=== PATIENT | female | born 1975 | race Hispanic/Latino ===

== ENCOUNTER 2021-04-13 03:35 | Emergency (ER) | payer OTHER, SELFPAY ==
--- OUTSIDE RECORDS SUMMARY | 2021-04-13 03:38 | XMS REPORT | Continuity of Care Document ---
:1975 Author Organization [facility] Address [address] [place] [address] Care Team Providers Name Role Phone DR SAMEER KNOTT Attending Clinician Unavailable , DR SHIN Attending Clinician Unavailable NIKOS, DR MARIA LUISA High Attending Clinician Unavailable TRISTON, Attending Clinician Unavailable REUBEN, DR Diego Attending Clinician Unavailable ASHLEY, Attending Clinician Unavailable TONIO, DR GODFREY Attending Clinician Unavailable NIKOS, Admitting Clinician Unavailable , Admitting Clinician Unavailable NIKOS, DR High Admitting Clinician Unavailable TRISTON, Admitting Clinician Unavailable REUBEN, DR Diego Admitting Clinician Unavailable ASHLEY, Admitting Clinician Unavailable TONIO, DR GODFREY Admitting Clinician Unavailable Problems This patient has no known problems. Allergies, Adverse Reactions, Alerts This patient has no known allergies or adverse reactions. Medications This patient has no known medications. Procedures This patient has no known procedures. Encounters Start End Encounter Admission Attending Care Care Encounter Source Date/Time Date/Time Type Type Clinicians Facility Department ID 2020-08-07 2020-08-07 Outpatient E NIKOS [facility] [id number] [facility] 13:28:00 13:55:00 [facility] 2020-06-13 2020-06-13 Outpatient E SHEIKH [facility] [id number] [facility] 11:59:00 13:45:00 KIP [facility] 2018-09-25 2018-09-25 Outpatient E MARIA LUISA KNOTT [facility] [id number] [facility] 03:21:00 04:05:00 [facility] 2018-08-06 2018-08-06 Outpatient E ROLANDO GOLDSTEIN [facility] [id number] [facility] 17:55:00 18:45:00 [facility] 2018-06-30 2018-06-30 Outpatient E SHEIKH [facility] [id number] [facility] 17:13:00 18:58:00 [facility] 2018-05-22 2018-05-22 Outpatient E REUBEN, [facility] [id number] [facility] 10:38:00 13:27:00 KYA [facility] 2018-04-08 2018-04-08 Outpatient E SHY RAMIREZ [facility] [id number] [facility] 11:24:00 12:04:00 [facility] 2018-02-27 2018-02-28 Outpatient E TONIO, [facility] [id number] [facility] 21:37:00 00:11:00 PEARL [facility] Results Test Description Test Time Test Comments Results Result [facility] Comments CT ABDOMEN AND 2021-01-05 PELVIS W/O 17:55:05 CONTRAST *OW* [facility] CENTERName: RAIZA CHAKRABORTY : 1975 Sex: F Ex am: CT abdomen and pelvis without contrast.Location: H 12History: Left sided abdominal painTechnique: Unenhanced spiral slices were taken from the domes of the diaphragm, through the pubic symphysis. Coronal reformations were performed. One or more of the following dose reduction techniques were used: Automated exposure control, adjustment of the mA and/or kV according to patient size, and/or utilization of iterative reconstruction technique.Findings:Th e liver is of normal, homogeneous density. No mass is seen. The intra-and extrahepatic biliary tree is normal. The gallbladder is unremarkable. No perinephric fluid collections or hydronephrosis is seen. The pancreas is normal. The pancreatic duct is normal in caliber. The spleen and adrenal glands are normal in size and shape.The left kidney is atrophic. Right kidney shows compensatory hypertrophy. The kidneys are otherwise unremarkable. No nephrolithiasis, perinephric fluid collections or hydronephrosis is seen.The large and small intestine are normal in caliber with scattered diverticula in the colon. The appendix is is not visualized. No inflammatory change is identified.No lymphadenopathy is found in the abdomen or the pelvis. No free fluid is seen.The pelvic structures are unremarkable.The lung bases are clear.No incidental findings are noted.Impression:1. No acute abdominal findings.2. Diverticulosis coli.3. Otherwise unremarkable exam.Electronically signed by: Bebeto Johnson MD 01/05/2021 5:55 PM CDT TROPONIN I OW 2021-01-05 17:38:00 Test Item Value Reference Range Interpretation Comme nts TROPONIN I (test code = A84) <0.050 ng/mL 0.000-0.050 GENERAL CHEMISTRY 13 *OW* [id number] 17:35:00 Test Item Value Reference Range Interpretation Comments GLUCOSE (test code = GGUL) 254 mg/dL 73-118 H BUN (test code = GBUN) 9 mg/dL 7-22 CREATININE (test code = GCRE) 0.4 mg/dL 0.6-1.2 L URIC ACID (test code = GUA) 1.9 mg/dL 2.2-6.6 L CALCIUM (test code = GCL+) 9.2 mg/dL 8.0-10.3 ALBUMIN (test code = GALB) 3.5 g/dL 3.5-5.5 PROTEIN (test code = GTP) 8.0 g/dL 6.4-8.1 ALT (test code = GALT) 6 U/L 10-47 L AST (test code = JEY) 19 U/L 11-38 ALK PHOS (test code = GALP) 75 U/L 42-141 BILI TOTAL (test code = GTBIL) 0.4 mg/dL 0.2-1.6 GGT (test code = GGGT) 22 U/L 5-65 AMYLASE (test code = GAMY) 31 U/L 14-97 URINE OW2021-01-05 17:35:00 Test Item Value Reference Range Interpretation Comments PREG UR (test code = PGU) Negative NEGATIVE URINALYSIS W/O MICROSCOPICOW2021-01-05 17:20:00 Test Item Value Reference Range Interpretation Comments COLOR (test code = Yellow YELLOW COLU) CLARITY (test code = Clear CLEAR CLA) GLUCOSE UR (test 3+ NEGATIVE A code = UA GLUCOSE) BILI UR (test code = Negative NEGATIVE BILE) KETONES UR (test Trace NEGATIVE code = LUPILLO) SP GRAVITY (test 1.020 1.005-1.030 code = SPGR) PH UR (test code = 7.0 4.5-8.0 PH) PROTEIN UR (test Negative NEGATIVE code = PU) NITRITE UR (test Negative NEGATIVE code = NITRITE) UROBIL UR (test code 4.0 E.U./dL = GUROQ) UROBIL UR (test code UROBILINOGEN = GUROQC) REFERENCE RANGE 0.2 - 1.0 EU/dL BLOOD UR (test code Negative NEGATIVE = UA BLOOD) LEUK ES UR (test Negative NEGATIVE code = LEUK) [employer] 8 Panel *OW* [id number] 17:20:00 Test Item Value Reference Range Interpretation Comments GLUCOSE (test code = GGUL) 254 mg/dL 73-118 H BUN (test code = GBUN) 9 mg/dL 7-22 CREATININE (test code = GCRE) 0.4 mg/dL 0.6-1.2 L CK TOTAL (test code = GCK) 43 U/L 30-190 SODIUM (test code = GNA+) 137 mmol/L 128-145 POTASSIUM (test code = GK+) 4.0 mmol/L 3.6-5.1 CHLORIDE (test code = GCL-) 106 mmol/L 98-108 TCO2 (test code = GTC02) 28 mmol/L 18-33 CBC (INCLUDES AUTOMATED DIFFERENTIAL) *2021-01-05 17:17:00 Test Item Value Reference Range Interpretation Comments WBC (test code = WBC) 7.2 10\S\3/uL 4.5-11.0 RBC (test code = RBC) 4.90 10\S\6/uL 4.20-5.60 HGB (test code = HBG) 10.3 g/dL 12.0-15.5 L HCT (test code = HCT) 33.7 % 35.0-44.0 L MCV (test code = MCV) 68.8 fL 81.0-99.0 L MCH (test code = MCH) 21.0 pg 27.0-31.0 L MCHC (test code = MCHC) 30.6 g/dL 32.0-36.0 L RDW (test code = RDW) 15.4 % 11.5-14.5 H PLT (test code = PLT) 223 10\S\3/uL 130-400 MPV (test code = OMPV) 9.2 fL 6.2-10.2 NEUTROP # (test code = NE#) 5.4 10\S\3/uL 1.6-8.0 LYMPH # (test code = LY#) 1.2 10\S\3/uL 1.1-3.5 MID # (test code = GMID#) 0.6 10\S\3/uL 0.0-1.1 GRAN % (test code = GRA%) 75.0 % 35.0-73.0 H LYMPH % (test code = GLY%) 16.9 % 20.0-55.0 L MID % (test code = GMID%) 8.1 % 0.0-10.0 DRUGS OF ABUSE*OW*2020-06-13 12:52:00 Test Item Value Reference Range Interpretation Comments DRUG SCRN (test code URINE DRUG SCREEN = HDOA) This is an unconfirmed screening result and should not be used for non-medical purposes PHENCYCLID (test Negative NEGATIVE code = GPCP) BENZODIAZE (test Negative NEGATIVE code = GBZO) COCAINE (test code = Negative NEGATIVE GCOC) AMPHETAMIN (test Negative NEGATIVE code = GAMP) THC (test code = Negative NEGATIVE GTHC) OPIATES (test code = Negative NEGATIVE REGINO) BARBITURAT (test Negative NEGATIVE code = GBAR) TCA (test code = Negative NEGATIVE GTCA) DOAH (test code = URINE DRUG DOAH) SCREEN CUT OFF VALUES Amphetamines 1000 ng/mL Barbituates 300 ng/mL Benzodiazepines 300 ng/mL Cocaine 300 ng/mL Opiates 300 ng/mL Phencyclidine 25 ng/mL THC 50 ng/mL Tricyclic Antidepressants 1000 ng/mL GENERAL CHEMISTRY 13 *OW* [id number] 12:52:00 Test Item Value Reference Range Interpretation Comments GLUCOSE (test code = GGUL) 347 mg/dL 73-118 H BUN (test code = GBUN) 12 mg/dL 7-22 CREATININE (test code = GCRE) 0.4 mg/dL 0.6-1.2 L URIC ACID (test code = GUA) 1.9 mg/dL 2.2-6.6 L CALCIUM (test code = GCL+) 9.1 mg/dL 8.0-10.3 ALBUMIN (test code = GALB) 3.7 g/dL 3.5-5.5 PROTEIN (test code = GTP) 7.5 g/dL 6.4-8.1 ALT (test code = GALT) 11 U/L 10-47 AST (test code = JEY) 18 U/L 11-38 ALK PHOS (test code = GALP) 67 U/L 42-141 BILI TOTAL (test code = GTBIL) 0.5 mg/dL 0.2-1.6 GGT (test code = GGGT) 11 U/L 5-65 AMYLASE (test code = GAMY) 41 U/L 14-97 TROPONIN I OW2020-06-13 12:44:00 Test Item Value Reference Range Interpretation Comments TROPONIN I (test code = A84) <0.050 ng/mL 0.000-0.050 CBC (INCLUDES AUTOMATED DIFFERENTIAL) *2020-06-13 12:39:00 Test Item Value Reference Range Interpretation Comments WBC (test code = WBC) 6.1 10\S\3/uL 4.5-11.0 RBC (test code = RBC) 5.10 10\S\6/uL 4.30-5.70 HGB (test code = HBG) 10.7 g/dL 12.0-15.5 L HCT (test code = HCT) 34.5 % 35.0-44.0 L MCV (test code = MCV) 67.6 fL 81.0-99.0 L MCH (test code = MCH) 21.0 pg 27.0-31.0 L MCHC (test code = MCHC) 31.0 g/dL 32.0-36.0 L RDW (test code = RDW) 16.1 % 11.5-14.5 H PLT (test code = PLT) 221 10\S\3/uL 130-400 MPV (test code = OMPV) 9.5 fL 6.2-10.2 NEUTROP # (test code = NE#) 4.4 10\S\3/uL 1.6-8.0 LYMPH # (test code = LY#) 1.3 10\S\3/uL 1.1-3.5 MID # (test code = GMID#) 0.4 10\S\3/uL 0.0-1.1 GRAN % (test code = GRA%) 72.5 % 35.0-73.0 LYMPH % (test code = GLY%) 21.6 % 20.0-55.0 MID % (test code = GMID%) 5.9 % 0.0-10.0 Mety[employer] 8 Panel *OW* [id number] 12:39:00 Test Item Value Reference Range Interpretation Comments GLUCOSE (test code = GGUL) 344 mg/dL 73-118 H BUN (test code = GBUN) 12 mg/dL 7-22 CREATININE (test code = GCRE) 0.5 mg/dL 0.6-1.2 L CK TOTAL (test code = GCK) 56 U/L 30-190 SODIUM (test code = GNA+) 141 mmol/L 128-145 POTASSIUM (test code = GK+) 4.0 mmol/L 3.6-5.1 CHLORIDE (test code = GCL-) 107 mmol/L 98-108 TCO2 (test code = GTC02) 28 mmol/L 18-33 URINALYSIS W/O MICROSCOPICOW2020-06-13 12:39:00 Test Item Value Reference Range Interpretation Comments COLOR (test code = Yellow YELLOW COLU) CLARITY (test code = Clear CLEAR CLA) GLUCOSE UR (test 2+ NEGATIVE A code = UA GLUCOSE) BILI UR (test code = Negative NEGATIVE BILE) KETONES UR (test Negative NEGATIVE code = LUPILLO) SP GRAVITY (test 1.020 1.005-1.030 code = SPGR) PH UR (test code = 7.0 4.5-8.0 PH) PROTEIN UR (test Negative NEGATIVE code = PU) NITRITE UR (test Negative NEGATIVE code = NITRITE) UROBIL UR (test code 1.0 E.U./dL = GUROQ) UROBIL UR (test code UROBILINOGEN = GUROQC) REFERENCE RANGE 0.2 - 1.0 EU/dL BLOOD UR (test code 1+ NEGATIVE A = UA BLOOD) LEUK ES UR (test Trace NEGATIVE code = LEUK) GLUCOMETER GLUCOSE- LAB USE [id number] 18:23:00 Test Item Value Reference Range Interpretation Comments GLUCOMETER (test code = 280 mg/dL 70-100 H Mete r ID: GMG) [id number] tor: [id number] KINJAL GLE NN URINALYSIS W/O MICROSCOPICOW2018-06-30 17:58:00 Test Item Value Reference Range Interpretation Comments COLOR (test code = Yellow YELLOW COLU) CLARITY (test code = Clear CLEAR CLA) GLUCOSE UR (test 3+ NEGATIVE A code = UA GLUCOSE) BILI UR (test code = Negative NEGATIVE BILE) KETONES UR (test 1+ NEGATIVE A code = LUPILLO) SP GRAVITY (test 1.020 1.005-1.030 code = SPGR) PH UR (test code = 7.0 4.5-8.0 PH) PROTEIN UR (test Negative NEGATIVE code = PU) NITRITE UR (test Negative NEGATIVE code = NITRITE) UROBIL UR (test code 0.2 E.U./dL = GUROQ) UROBIL UR (test code UROBILINOGEN = GUROQC) REFERENCE RANGE 0.2 - 1.0 EU/dL BLOOD UR (test code Negative NEGATIVE = UA BLOOD) LEUK ES UR (test Negative NEGATIVE code = LEUK) CHEM8+ i-STAT OW2018-06-30 17:50:00 Test Item Value Reference Range Interpretation Comments SODIUM (test code = REX) 136 mmol/L 138-146 L POTASSIUM (test code = KI) 4.1 mmol/L 3.5-4.9 CHLORIDE (test code = CLI) 103 mmol/L 98-109 CA IONIZED (test code = ICAI) 1.20 mmol/L 1.12-1.32 GLUCOSE (test code = GLUI) 326 mg/dL 75-100 H TCO2 (test code = TCO2) 23 mmol/L 24-29 L BUN (test code = BUN1) 13 mg/dL 8-26 CREATININE (test code = CREAI) 0.5 mg/dL 0.6-1.3 L ANION GAP (test code = GANG) 15.0 mmol/L HGB (test code = MHB) 12.6 g/dL 12.0-17.0 HCT (test code = MHCT) 37.0 % 38.0-51.0 L CBC (INCLUDES AUTOMATED DIFFERENTIAL) *2018-06-30 17:49:00 Test Item Value Reference Range Interpretation Comments WBC (test code = WBC) 5.8 10\S\3/uL 4.5-11.0 RBC (test code = RBC) 4.93 10\S\6/uL 4.30-5.70 HGB (test code = HBG) 11.8 g/dL 12.0-15.5 L HCT (test code = HCT) 36.6 % 35.0-44.0 MCV (test code = MCV) 74.2 fL 81.0-99.0 L MCH (test code = MCH) 23.9 pg 27.0-31.0 L MCHC (test code = MCHC) 32.2 g/dL 32.0-36.0 RDW (test code = RDW) 15.3 % 11.5-14.5 H PLT (test code = PLT) 183 10\S\3/uL 130-400 MPV (test code = OMPV) 9.1 fL 6.2-10.2 NEUTROP # (test code = NE#) 3.9 10\S\3/uL 1.6-8.0 LYMPH # (test code = LY#) 1.5 10\S\3/uL 1.1-3.5 MID # (test code = GMID#) 0.4 10\S\3/uL 0.0-1.1 GRA % (test code = GRA%) 67.7 % 35.0-73.0 LYMPH % (test code = GLY%) 25.2 % 20.0-55.0 MID % (test code = GMID%) 7.1 % 0.0-10.0 GLUCOMETER GLUCOSE- LAB USE [id number] 12:47:00 Test Item Value Reference Range Interpretation Comments GLUCOMETER (test code = 202 mg/dL 70-100 H Mete r ID: GMG) [id number] tor: [id number] DOUZLLY MHETAMOUR XR CHEST 1 VIEW *OW*2018-05-22 12:16:40HISTORY: chest painLocation code: [id number]: Frontal view of the chest demonstrates normal cardiomed iastinalsilhouette. The trachea is midline. The lungs are clear. There is no effusionor pneumothorax. The bones are intact.IMPRESSION: No acute pulmonary process.BRAIN NATRIURETIC PROTEIN OW2018-05-22 12:10:00 Test Item Value Reference Range Interpretation Comments BNP (test code = OBNP) <15 pg/mL 0-50 TROPONIN I i-STAT OW2018-05-22 11:59:00 Test Item Value Reference Range Interpretation Comments TROPONIN I (test code = A84) 0.000 ng/mL 0.000-0.045 CK MB i-STAT OW2018-05-22 11:41:00 Test Item Value Reference Range Interpretation Comments CKMB (test code = A49) 1.0 ng/mL <=3.6 URINE OW2018-05-22 11:37:00 Test Item Value Reference Range Interpretation Comments PREG UR (test code = PGU) Negative NEGATIVE CBC (INCLUDES AUTOMATED DIFFERENTIAL) *2018-05-22 11:34:00 Test Item Value Reference Range Interpretation Comments WBC (test code = WBC) 4.3 10\S\3/uL 4.5-11.0 L RBC (test code = RBC) 4.00 10\S\6/uL 4.30-5.70 L HGB (test code = HBG) 11.4 g/dL 12.0-15.5 L HCT (test code = HCT) 30.0 % 35.0-44.0 L MCV (test code = MCV) 75.1 fL 81.0-99.0 L MCH (test code = MCH) 28.5 pg 27.0-31.0 MCHC (test code = MCHC) 38.0 g/dL 32.0-36.0 H RDW (test code = RDW) 14.9 % 11.5-14.5 H PLT (test code = PLT) 153 10\S\3/uL 130-400 MPV (test code = OMPV) 8.1 fL 6.2-10.2 NEUTROP # (test code = NE#) 2.7 10\S\3/uL 1.6-8.0 LYMPH # (test code = LY#) 1.3 10\S\3/uL 1.1-3.5 MID # (test code = GMID#) 0.3 10\S\3/uL 0.0-1.1 GRA % (test code = GRA%) 62.9 % 35.0-73.0 LYMPH % (test code = GLY%) 29.2 % 20.0-55.0 MID % (test code = GMID%) 7.9 % 0.0-10.0 PROTHROMBIN TIME i-STAT OW2018-05-22 11:34:00 Test Item Value Reference Range Interpretation Comments PT (test code = 11.3 s 10.0-13.0 PT1) INR (test code = 0.9 INR) INRH (test code = SUGGESTED INRH) THERAPEUTIC RANGE FOR INR: 2.5 - 3.5 For Patients with Prosthetic Valves or Patients with recurrent Thromboembolic Events 2.0 - 3.0 For Most Other Applications URINALYSIS W/O MICROSCOPICOW2018-05-22 11:32:00 Test Item Value Reference Range Interpretation Comments COLOR (test code = Yellow YELLOW COLU) CLARITY (test code = Clear CLEAR CLA) GLUCOSE UR (test 3+ NEGATIVE A code = UA GLUCOSE) BILI UR (test code = Negative NEGATIVE BILE) KETONES UR (test Negative NEGATIVE code = LUPILLO) SP GRAVITY (test 1.020 1.005-1.030 code = SPGR) PH UR (test code = 6.0 4.5-8.0 PH) PROTEIN UR (test 2+ NEGATIVE A code = PU) NITRITE UR (test Negative NEGATIVE code = NITRITE) UROBIL UR (test code 0.2 E.U./dL = GUROQ) UROBIL UR (test code UROBILINOGEN = GUROQC) REFERENCE RANGE 0.2 - 1.0 EU/dL BLOOD UR (test code 2+ NEGATIVE A = UA BLOOD) LEUK ES UR (test Negative NEGATIVE code = LEUK) CHEM8+ i-STAT OW2018-05-22 11:31:00 Test Item Value Reference Range Interpretation Comments SODIUM (test code = REX) 136 mmol/L 138-146 L POTASSIUM (test code = KI) 3.9 mmol/L 3.5-4.9 CHLORIDE (test code = CLI) 101 mmol/L 98-109 CA IONIZED (test code = ICAI) 1.15 mmol/L 1.12-1.32 GLUCOSE (test code = GLUI) 301 mg/dL 75-100 H TCO2 (test code = TCO2) 27 mmol/L 24-29 BUN (test code = BUN1) 8 mg/dL 8-26 CREATININE (test code = CREAI) 0.3 mg/dL 0.6-1.3 L ANION GAP (test code = GANG) 12.0 mmol/L HGB (test code = MHB) 12.6 g/dL 12.0-17.0 HCT (test code = MHCT) 37.0 % 38.0-51.0 L GLUCOMETER GLUCOSE- LAB USE [id number] 11:44:00 Test Item Value Reference Range Interpretation Comments GLUCOMETER (test code = 316 mg/dL 70-100 H Mete r ID: GMG) [id number] tor: [id number] KINJAL ROSARIO PROTHROMBIN TIME i-STAT OW2018-02-28 06:45:00 Test Item Value Reference Range Interpretation Comments PT (test code = <10.0 s 10.0-13.0 PT1) INR (test code = <0.9 INR) INRH (test code = SUGGESTED INRH) THERAPEUTIC RANGE FOR INR: 2.5 - 3.5 For Patients with Prosthetic Valves or Patients with recurrent Thromboembolic Events 2.0 - 3.0 For Most Other Applications GLUCOMETER GLUCOSE- LAB USE [id number] 23:39:00 Test Item Value Reference Range Interpretation Comments GLUCOMETER (test code = 199 mg/dL 70-100 H Mete r ID: GMG) [id number] tor: [id number] TIERRA MIR TROPONIN I i-STAT OW2018-02-27 23:18:00 Test Item Value Reference Range Interpretation Comments TROPONIN I (test code = A84) 0.000 ng/mL 0.000-0.045 URINE OW2018-02-27 23:05:00 Test Item Value Reference Range Interpretation Comments PREG UR (test code = PGU) Negative NEGATIVE URINALYSIS W/O MICROSCOPICOW2018-02-27 22:58:00 Test Item Value Reference Range Interpretation Comments COLOR (test code = Yellow YELLOW COLU) CLARITY (test code = Clear CLEAR CLA) GLUCOSE UR (test 3+ NEGATIVE A code = UA GLUCOSE) BILI UR (test code = Negative NEGATIVE BILE) KETONES UR (test Negative NEGATIVE code = LUPILLO) SP GRAVITY (test 1.015 1.005-1.030 code = SPGR) PH UR (test code = 6.0 4.5-8.0 PH) PROTEIN UR (test Negative NEGATIVE code = PU) NITRITE UR (test Negative NEGATIVE code = NITRITE) UROBIL UR (test code 0.2 E.U./dL = GUROQ) UROBIL UR (test code UROBILINOGEN = GUROQC) REFERENCE RANGE 0.2 - 1.0 EU/dL BLOOD UR (test code Negative NEGATIVE = UA BLOOD) LEUK ES UR (test Negative NEGATIVE code = LEUK) CBC (INCLUDES AUTOMATED DIFFERENTIAL) *2018-02-27 22:57:00 Test Item Value Reference Range Interpretation Comments WBC (test code = WBC) 5.4 10\S\3/uL 4.5-11.0 RBC (test code = RBC) 5.19 10\S\6/uL 4.30-5.70 HGB (test code = HBG) 11.8 g/dL 12.0-15.5 L HCT (test code = HCT) 37.2 % 35.0-44.0 MCV (test code = MCV) 71.6 fL 81.0-99.0 L MCH (test code = MCH) 22.7 pg 27.0-31.0 L MCHC (test code = MCHC) 31.7 g/dL 32.0-36.0 L RDW (test code = RDW) 15.0 % 11.5-14.5 H PLT (test code = PLT) 212 10\S\3/uL 130-400 MPV (test code = MPV) 9.0 fL 9.4-12.4 L NEUTROP # (test code = NE#) 3.2 10\S\3/uL 1.6-8.0 LYMPH # (test code = LY#) 1.8 10\S\3/uL 1.1-3.5 MID # (test code = GMID#) 0.4 10\S\3/uL 0.0-1.1 GRA % (test code = GRA%) 60.1 % 35.0-73.0 LYMPH % (test code = GLY%) 32.8 % 20.0-55.0 MID % (test code = GMID%) 7.1 % 0.0-10.0 CHEM8+ i-STAT OW2018-02-27 22:57:00 Test Item Value Reference Range Interpretation Comments SODIUM (test code = REX) 134 mmol/L 138-146 L POTASSIUM (test code = KI) 3.8 mmol/L 3.5-4.9 CHLORIDE (test code = CLI) 103 mmol/L 98-109 CA IONIZED (test code = ICAI) 1.13 mmol/L 1.12-1.32 GLUCOSE (test code = GLUI) 448 mg/dL 75-100 H TCO2 (test code = TCO2) 21 mmol/L 24-29 L BUN (test code = BUN1) 18 mg/dL 8-26 CREATININE (test code = CREAI) 0.3 mg/dL 0.6-1.3 L ANION GAP (test code = GANG) 15.0 mmol/L
[2021-04-13 04:39] LABS: Urine Blood 1+ (Negative); Urine Glucose 2+ (Negative); Urine Protein Trace (Negative); Urine Specific Gravity 1.015 (1.005-1.030)
[2021-04-13 04:42] LABS: Urine Specific Gravity/Preg 1.015 (1.005-1.030)
[2021-04-13 05:55] LABS: Urine Bacteria 20-50 /HPF (<20); Urine Mucus 1+ /HPF (NONE SEEN)
[2021-04-13] MEDS ORDERED: AMOX/K CLAV 875 MG TAB ONE (06:42)
--- NOTE | 2021-04-13 06:57 | ER ---
Nurse's Notes [facility] Name: Lauren Darnell Age: 45 yrs Sex: Female : 1975 Arrival Date: 04/13/2021 Time: 03:40 Bed 10 Private MD: Diagnosis: UTI/ Urinary tract infection, site not specified Presentation: 04/13 04:06 Chief complaint: Patient states: she has low back pain and she checked her temp at home bb which was 101 she is having generalized body pain is having pain with urination. Coronavirus screen: fever, muscle pain, Client presents with at least one sign or symptom that may indicate coronavirus-19. Standard/surgical mask placed on the client. Ebola Screen: No symptoms or risks identified at this time. Initial Sepsis Screen: Does the patient meet any 2 criteria? No. Patient's initial sepsis screen is negative. Does the patient have a suspected source of infection? No. Patient's initial sepsis screen is negative. Risk Assessment: Do you want to hurt yourself or someone else? Patient reports no desire to harm self or others. Onset of symptoms was April 13, 2021. 04:06 Method Of Arrival: Ambulatory bb 04:06 Acuity: KAYDEN 3 bb Triage Assessment: 04:10 General: Appears in no apparent distress. Behavior is calm, cooperative. Pain: bb Complains of pain in all over Pain currently is 9 out of 10 on a pain scale. Neuro: Level of Consciousness is awake, alert, obeys commands, Oriented to person, place, time, situation. Cardiovascular: Capillary refill < 3 seconds Patient's skin is warm and dry. Respiratory: Respiratory effort is even, unlabored, Respiratory pattern is regular. GI: Abdomen is non-distended. Derm: Skin is pink, warm \T\ dry. Musculoskeletal: Circulation, motion, and sensation intact. 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 - Social history:: Smoking status: Patient reports the use of cigarette tobacco products, smokes one-half pack cigarettes per day, Patient/guardian denies using alcohol, street drugs. Screenin:39 Abuse screen: Denies threats or abuse. Nutritional screening: No deficits noted. bb Tuberculosis screening: No symptoms or risk factors identified. Fall Risk None identified. Assessment: 06:26 Reassessment: Patient appears in no apparent distress at this time. Patient and/or jb4 family updated on plan of care and expected duration. Pain level reassessed. Patient is alert, oriented x 3, equal unlabored respirations, skin warm/dry/pink. 07:37 Reassessment: pt appears to be sleeping, eyes closed, resp unlabored arouses easily, pt bb verbalized understanding of and agrees to plan of care discharge instructions given pt ambulated with steady gait to exit. Vital Signs: 04:06 BP 111 / 81; Pulse 99; Resp 16 S; Temp 98.9(O); Pulse Ox 97% on R/A; Weight 47.17 kg bb (R); Height 5 ft. 2 in. (157.48 cm) (R); Pain 9/10; 05:35 BP 113 / 78; Pulse 118; Resp 18 S; Pulse Ox 100% on R/A; bb 07:38 BP 101 / 71; Pulse 93; Resp 14 S; Pulse Ox 96% ; bb 04:06 Body Mass Index 19.02 (47.17 kg, 157.48 cm) bb ED Course: 03:40 Patient arrived in ED. bp1 04:10 Triage completed. bb 04:10 Arm band placed on Patient placed in waiting room, Patient notified of wait time. Urine bb obtained. Labs ordered per protocol. 05:58 Marion Gasca FNP-C is PHCP. kb 05:58 Gamal Orlando MD is Attending Physician. kb 06:23 Anthony Perla, JL is Primary Nurse. jb4 07:39 No provider procedures requiring assistance completed. Patient did not have IV access bb during this emergency room visit. 07:40 Patient has correct armband on for positive identification. bb Administered Medications: 06:23 Drug: Augmentin (Amoxicillin-Clavulanate) 875 mg Route: PO; jb4 07:40 Follow up: Response: No adverse reaction bb Outcome: 06:57 Discharge ordered by . kb 07:39 Discharged to home ambulatory. starr 07:39 Condition: stable 07:39 Discharge instructions given to patient, Instructed on discharge instructions, follow up and referral plans. medication usage, Demonstrated understanding of instructions, follow-up care, medications, Prescriptions given X 1. 07:40 Patient left the ED. satrr Signatures: Marion Gasca, THERESA-C THERESA-Vandana [place] RN RN bb Anthony Perla RN RN jb4 Miriam Gregorio [facility] Corrections: (The following items were deleted from the chart) 04:12 04:10 Home Meds: None; starr clements
--- NOTE | 2021-04-13 06:57 | EDPHYS ---
Physician Documentation [facility] Name: Lauren Darnell Age: 45 yrs Sex: Female : 1975 Arrival Date: 04/13/2021 Time: 03:40 Bed 10 Private MD: ED Physician Gamal Orlando HPI: 04/13 06:10 This 45 yrs old Female presents to ER via Ambulatory with complaints of General kb Weakness, Neck Pain, <24hrs Old, Nausea, Headache. 06:10 The patient or guardian reports flu symptoms, low-grade fever, myalgias. Onset: The kb symptoms/episode began/occurred yesterday, at 16:00. Severity of symptoms: At their worst the symptoms were moderate, in the emergency department the symptoms are unchanged. Modifying factors: The symptoms are alleviated by nothing, the symptoms are aggravated by nothing. Associated signs and symptoms: Pertinent positives: fever, nausea, Pertinent negatives: chest pain, diarrhea, ear ache, rhinorrhea, sore throat, vomiting. The patient has not experienced similar symptoms in the past. The patient has not recently seen a physician. Patient reports she was exposed to Covid last week. States she went to [place] yesterday and on the way home around 4 PM started having body aches, chills, malaise, fatigue, nausea. Also reports urinary frequency and dysuria that started yesterday. States she took her temperature with a temporal scanner just prior to arrival which read 101 so she came in to get tested for Covid. Patient reports she had no fever when she got here and did not treat prior to arrival.. 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 - Social history:: Smoking status: Patient reports the use of cigarette tobacco products, smokes one-half pack cigarettes per day, Patient/guardian denies using alcohol, street drugs. ROS: 06:07 Respiratory: Negative for shortness of breath, cough, wheezing, and pleuritic chest kb pain. 06:07 Constitutional: Positive for body aches, chills, fatigue, fever, malaise. 06:07 Abdomen/GI: Positive for nausea, Negative for abdominal pain, vomiting, diarrhea. 06:07 : Positive for urinary symptoms, urinary frequency, burning with urination. 06:07 All other systems are negative. 06:10 Back: Positive for pain at rest, of the low back area. kb Exam: 06:08 Constitutional: This is a well developed, well nourished patient who is awake, alert, kb and in no acute distress. Head/Face: Normocephalic, atraumatic. ENT: Moist Mucous membranes Cardiovascular: Regular rate and rhythm with a normal S1 and S2. No gallops, murmurs, or rubs. No pulse deficits. Respiratory: Respirations even and unlabored. No increased work of breathing, no retractions or nasal flaring. Skin: Warm, dry with normal turgor. Normal color. MS/ Extremity: Pulses equal, no cyanosis. Neurovascular intact. Full, normal range of motion. Neuro: Awake and alert, GCS 15, oriented to person, place, time, and situation. Moves all extremities. Normal gait. Psych: Awake, alert, with orientation to person, place and time. Behavior, mood, and affect are within normal limits. 06:08 Abdomen/GI: Inspection: abdomen appears normal, Bowel sounds: normal, in all quadrants, Palpation: soft, in all quadrants, mild abdominal tenderness, in the left upper quadrant, right lower quadrant and left lower quadrant, states "the pain is everywhere, my whole body hurts.". 06:08 Back: pain, that is moderate, of the right low back, ROM is normal, normal spinal alignment noted, CVA tenderness, is absent. Vital Signs: 04:06 BP 111 / 81; Pulse 99; Resp 16 S; Temp 98.9(O); Pulse Ox 97% on R/A; Weight 47.17 kg bb (R); Height 5 ft. 2 in. (157.48 cm) (R); Pain 9/10; 05:35 BP 113 / 78; Pulse 118; Resp 18 S; Pulse Ox 100% on R/A; bb 07:38 BP 101 / 71; Pulse 93; Resp 14 S; Pulse Ox 96% ; bb 04:06 Body Mass Index 19.02 (47.17 kg, 157.48 cm) bb MDM: 05:59 Patient medically screened. kb 06:08 Data reviewed: vital signs, nurses notes. Data interpreted: Pulse oximetry: on room air kb is 100 %. Interpretation: normal. 06:13 Counseling: I had a detailed discussion with the patient and/or guardian regarding: the kb historical points, exam findings, and any diagnostic results supporting the discharge/admit diagnosis, lab results, the need for outpatient follow up, a family practitioner, to return to the emergency department if symptoms worsen or persist or if there are any questions or concerns that arise at home. ED course: Patient educated on diagnostic results. Educated to get retested in a day or 2 if symptoms persist. Educated to return for worsening symptoms. Educated to quarantine at home due to symptoms and exposure.. 04/13 04:38 Order name: Urine Dipstick-Ancillary; Complete Time: 05:22 EDMS 04/13 04:39 Order name: Urine Microscopic Only tt3 04/13 04:39 Order name: Urine --Ancillary (enter results) tt3 04/13 04:41 Order name: Urine Microscopic Only; Complete Time: 05:59 EDMS 04/13 04:41 Order name: Urine --Ancillary; Complete Time: 05:59 EDMS 04/13 05:27 Order name: SARS-COV-2 RT PCR; Complete Time: 05:59 EDMS 04/13 04:39 Order name: Urine Test (obtain specimen); Complete Time: 04:39 tt3 04/13 05:55 Order name: Urine Culture EDMS 04/13 06:05 Order name: Flu kb 04/13 06:06 Order name: Influenza Screen (A ; Complete Time: 06:57 EDMS Administered Medications: 06:23 Drug: Augmentin (Amoxicillin-Clavulanate) 875 mg Route: PO; jb4 07:40 Follow up: Response: No adverse reaction bb Disposition: 19:03 Co-signature as Attending Physician, Gamal Orlando MD. pkl Disposition Summary: 04/13/21 06:57 Discharge Ordered Location: Home kb Condition: Stable kb Diagnosis - UTI/ Urinary tract infection, site not specified kb Followup: kb - With: Private Physician - When: 2 - 3 days - Reason: Recheck today's complaints, Continuance of care, Re-evaluation by your physician Followup: kb - With: Emergency Department - When: As needed - Reason: Worsening of condition Discharge Instructions: - Discharge Summary Sheet kb - Urinary Tract Infection, Adult, [id number] kb Forms: - Medication Reconciliation Form kb - Thank You Letter kb - Antibiotic Education kb - Prescription Opioid Use kb Prescriptions: - Augmentin 875-125 mg Oral Tablet - take 1 tablet by ORAL route every 12 hours for 10 days; 20 tablet; Refills: 0, kb Product Selection Permitted Signatures: Dispatcher [employer] EDMS Marion Gasca, TRUCK CHAUFFEUR-C THERESA-Aramisb Gamal Orlando MD MD pkl Ballard, Brenda RN RN Uziel Kwon FNP-C THERESA-Cla1 Anthony Perla RN RN jb4 Dat Rosenberg tt3 Corrections: (The following items were deleted from the chart) 04:12 04:10 Home Meds: None; starr clements
[2021-04-13 07:49] VITALS: TEMP 98.9
[2021-04-13 07:53] VITALS: BP 101/71; O2SAT 96
== END 2021-04-13 07:40 | disposition home or self-care (01) ==
LOC: ER 03:35
DX: N39.0 Urinary tract infection, site not specified (principal); E11.9 Type 2 diabetes mellitus without complications; F17.210 Nicotine dependence, cigarettes, uncomplicated; Z20.822 Contact with and (suspected) exposure to COVID-19
CPT/HCPCS: 87088; 87086; 81025; 87077; 87186; 87804 ×2; 99283; U0003; 81003; 81015

== ENCOUNTER 2021-08-22 22:06 | Inpatient (IN) | payer OTHER, SELFPAY ==
[2021-08-22] MEDS ORDERED: ACETAMINOPHEN 325 MG TABLET ONE (22:49)
[2021-08-22 22:50] LABS: Urine Specific Gravity/Preg 1.015 (1.005-1.030)
[2021-08-22] MEDS ORDERED: MORPHINE 2 MG/ML SYR ONE ×2 (22:50→23:43)
[2021-08-22] MEDS ORDERED: ONDANSETRON 4 MG/2 ML VIAL ONE (22:50)
[2021-08-22] MEDS ORDERED: NA CHLORIDE 0.9% 500 ML ONE (22:50)
[2021-08-22] MEDS ORDERED: NA CHLORIDE 0.9% 1,000 ML ONE (22:50)
[2021-08-22 22:53] LABS: Absolute Lymphocytes (CBC) 0.7 K/uL (0.7-4.9); Basophils % 0.4 % (0-1.3); Hematocrit 38.2 % (36.0-45.0); MPV 8.6 fL (7.6-11.3); RBC Red Blood Cell Count 5.11 M/uL (3.86-4.86)
[2021-08-22 22:57] LABS: Protime INR 0.98
[2021-08-22 23:12] LABS: Urine Bacteria <20 /HPF (<20)
[2021-08-22 23:24] LABS: ALT/SGPT 15 U/L (12-78); AST/SGOT 10 U/L (15-37); Albumin 3.2 g/dL (3.4-5.0); Alkaline Phosphatase 92 U/L (45-117); BUN Blood Urea Nitrogen 9 mg/dL (7-18); Bicarbonate 24 mmol/L (21-32); Bilirubin Direct < 0.1 mg/dL (0-0.2); Bilirubin Total 0.3 mg/dL (0.2-1.0); Glucose Level 386 mg/dL (74-106); Lipase 233 U/L (73-393); Magnesium 2.1 mg/dL (1.8-2.4); Potassium 3.6 mmol/L (3.5-5.1); Protein, Total 8.1 g/dL (6.4-8.2); Sodium Level 134 mmol/L (136-145)
[2021-08-22 23:34] LABS: SARS-COV-2 RT PCR NEGATIVE (NEGATIVE)
[2021-08-22] MEDS ORDERED: NA CHLORIDE 0.9% 50 ML ONE (23:43)
[2021-08-22] MEDS ORDERED: CEFTRIAXONE 1000 MG/VIAL ONE (23:43)
--- OUTSIDE RECORDS SUMMARY | 2021-08-23 00:21 | XMS REPORT | Continuity of Care Document ---
:1975 Author Organization [facility] t Address [address] [place] [address] Care Team Providers Name Role Phone DR SAMEER KNOTT Attending Clinician Unavailable , DR SHIN Attending Clinician Unavailable CARLENE Attending Clinician Unavailable NIKOS, DR MARIA LUISA High Attending Clinician Unavailable TRISTON, Attending Clinician Unavailable REUBEN, DR Diego Attending Clinician Unavailable ASHLEY, Attending Clinician Unavailable TONIO, DR GODFREY Attending Clinician Unavailable NIKOS, Admitting Clinician Unavailable , Admitting Clinician Unavailable CARLENE Admitting Clinician Unavailable NIKOS, DR High Admitting Clinician Unavailable TRISTON, Admitting Clinician Unavailable REUBEN, DR Diego Admitting Clinician Unavailable ASHLEY, Admitting Clinician Unavailable TONIO, DR GODFREY Admitting Clinician Unavailable Payers Payer Name Policy Type Policy Number Effective Date Expiration Date S ource Problems This patient has no known problems. Allergies, Adverse Reactions, Alerts This patient has no known allergies or adverse reactions. Medications This patient has no known medications. Procedures This patient has no known procedures. Encounters Start End Encounter Admission Attending Care Care Encounter Source Date/Time Date/Time Type Type Clinicians Facility Department ID 2020-08-07 2020-08-07 Outpatient Chilo KNOTT [facility] [id number] [facility] 13:28:00 13:55:00 SAMEER wang [place] 2020-06-13 2020-06-13 Outpatient Chilo MCCRAY [facility] [id number] [facility] 11:59:00 13:45:00 KIP Medica [facility] [place] 2020-03-08 2020-03-08 Outpatient CHRISTOPHER RAVI [facility] [id number] [place] 03:00:00 03:00:00 AMMY [id number] da [facility] 2018-09-25 2018-09-25 Outpatient MARIA LUISA MCKINNON [facility] [id number] [facility] 03:21:00 04:05:00 Medica l [place] 2018-08-06 2018-08-06 Outpatient E ROLANDO GOLDSTEIN [facility] [id number] [facility] 17:55:00 18:45:00 Medica l [place] 2018-06-30 2018-06-30 Outpatient E , [facility] [id number] [facility] 17:13:00 18:58:00 [facility] 2018-05-22 2018-05-22 Outpatient E REUBEN, [facility] [id number] [facility] 10:38:00 13:27:00 K[facility] 2018-04-08 2018-04-08 Outpatient E SHY RAMIREZ [facility] [id number] [facility] 11:24:00 12:04:00 Medica l [place] 2018-02-27 2018-02-28 Outpatient E TONIO, [facility] [id number] [facility] 21:37[facility]00 [facility] Test Description Test Time Test Comments Results Result [facility] e Comments CT ABDOMEN AND 2021-01-05 PELVIS W/O 17:55:05 CONTRAST *OW* [facility] : 1975 Sex: F Ex [...] <0.050 ng/mL 0.000-0.050 GENERAL CHEMISTRY 13 *OW* [id number] 17:35:00 Test Item Value Reference Range Interpretation [...] code = LEUK) [employer] 8 Panel *OW* [id number] 17:20:00 Test Item Value Reference Range Interpretation [...] Antidepressants 1000 ng/mL GENERAL CHEMISTRY 13 *OW* [id number] 12:52:00 Test Item Value Reference Range Interpretation [...] 5.9 % 0.0-10.0 [employer] 8 Panel *OW* [id number] 12:39:00 Test Item Value Reference Range Interpretation [...] code = LEUK) GLUCOMETER GLUCOSE- LAB USE [id number] 18:23:00 Test Item Value Reference Range Interpretation Comments GLUCOMETER (test code = 280 mg/dL 70-100 H Mete r ID: GMG) [id number] tor: 9385 KINJAL GLE NN URINALYSIS W/O [...] 7.1 % 0.0-10.0 GLUCOMETER GLUCOSE- LAB USE [id number] 12:47:00 Test Item Value Reference Range Interpretation Comments GLUCOMETER (test code = 202 mg/dL 70-100 H Mete r ID: GMG) [id number] tor: 3696 DO S EYMOUR XR CHEST 1 VIEW *OW*2018-05-22 12:16:40HISTORY: chest painLocation code: [id number]: Frontal view of the chest demonstrates normal [...] % 38.0-51.0 L GLUCOMETER GLUCOSE- LAB USE [id number] 11:44:00 Test Item Value Reference Range Interpretation Comments GLUCOMETER (test code = 316 mg/dL 70-100 H Mete r ID: GMG) [id number] tor: 9385 KINJAL MAGANA NN PROTHROMBIN TIME i-STAT OW2018-02-28 06:45:00 Test Item Value Reference Range Interpretation Comments PT (test code = <10.0 s 10.0-13.0 PT1) INR (test code = <0.9 INR) INRH (test code = SUGGESTED INRH) THERAPEUTIC RANGE FOR INR: 2.5 - 3.5 For Patients with Prosthetic Valves or Patients with recurrent Thromboembolic Events 2.0 - 3.0 For Most Other Applications GLUCOMETER GLUCOSE- LAB USE [id number] 23:39:00 Test Item Value Reference Range Interpretation Comments GLUCOMETER (test code = 199 mg/dL 70-100 H Mete r ID: GMG) [id number] tor: 9362 TIERRA MIR TROPONIN I i-STAT [...]
--- NOTE | 2021-08-23 00:37 | EDPHYS ---
Physician Documentation [facility] Name: Lauren Darnell Age: 45 yrs Sex: Female : 1975 Arrival Date: 08/22/2021 Time: 22:09 Bed 6 Private MD: ED Physician Bianka Aparicio HPI: 08/22 22:20 This 45 yrs old Female presents to ER via EMS with complaints of Right Flank Pain. cp 22:20 The patient complains of pain in the right flank. The pain radiates to the abdomen. cp Onset: The symptoms/episode began/occurred today. Associated signs and symptoms: Pertinent positives: fever, cough, Pertinent negatives: diarrhea, headache, pain radiating to the lower extremities, vomiting. Severity of pain: in the emergency department the pain is unchanged despite EMS interventions. yes with pain similar to when diagnosed with kidney stone. 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 - Social history:: Smoking status: Patient denies any tobacco usage or history of. ROS: 22:25 Constitutional: Positive for fever. cp 22:25 Eyes: Negative for injury, pain, redness, and discharge. cp 22:25 ENT: Negative for ear pain, sore throat, difficulty swallowing, difficulty handling secretions. 22:25 Cardiovascular: Negative for chest pain. 22:25 Respiratory: Positive for cough, Negative for shortness of breath, wheezing. 22:25 Abdomen/GI: Positive for abdominal pain, Negative for vomiting, diarrhea, constipation. 22:25 Back: Positive for flank pain, on the right. 22:25 Neuro: Negative for altered mental status, headache, weakness. 22:25 All other systems are negative. Exam: 22:30 Constitutional: The patient appears in no acute distress, alert, awake, non-toxic, well cp developed, well nourished, in obvious pain, uncomfortable. 22:30 Head/Face: Normocephalic, atraumatic. cp 22:30 Eyes: Periorbital structures: appear normal, Conjunctiva: normal, no exudate, no injection, Sclera: no appreciated abnormality, Lids and lashes: appear normal, bilaterally. 22:30 ENT: External ear(s): are unremarkable, Nose: is normal, Mouth: Lips: moist, Oral mucosa: moist, Posterior pharynx: Airway: no evidence of obstruction, patent. 22:30 Neck: ROM/movement: is normal, is supple, without pain, no range of motions limitations. 22:30 Chest/axilla: Inspection: normal, Palpation: is normal, no crepitus, no tenderness. 22:30 Cardiovascular: Rate: tachycardic, Rhythm: regular, Edema: is not appreciated, JVD: is not appreciated. 22:30 Respiratory: the patient does not display signs of respiratory distress, Respirations: normal, no use of accessory muscles, no retractions, labored breathing, is not present, Breath sounds: are clear throughout, no decreased breath sounds, no stridor, no wheezing. 22:30 Abdomen/GI: Inspection: abdomen appears normal, Bowel sounds: active, all quadrants, Palpation: soft, in all quadrants, severe abdominal tenderness, in the posterior aspect of right lateral abdomen and anterior aspect of right lateral abdomen, rebound tenderness, is not appreciated, involuntary guarding, is not appreciated. 22:30 Skin: no rash present. 22:30 Neuro: Orientation: to person, place \T\ time. Mentation: is normal, Motor: moves all fours, strength is normal, Sensation: is normal. Vital Signs: 22:18 BP 117 / 72; Pulse 117; Resp 21 S; Temp 100.9(TE); Pulse Ox 98% on R/A; Weight 47.63 kg as6 (R); Height 5 ft. 2 in. (157.48 cm) (R); Pain 9/10; 23:37 BP 125 / 78; Pulse 117; Resp 18 S; Temp 99.5(TE); Pulse Ox 100% on R/A; as6 08/23 00:28 BP 103 / 71; Pulse 110; Resp 23 S; Pulse Ox 97% on R/A; as6 08/22 22:18 Body Mass Index 19.20 (47.63 kg, 157.48 cm) as6 MDM: 08/22 22:23 Patient medically screened. cp 23:00 Differential diagnosis: nephrolithiasis, pyelonephritis, UTI, diverticulitis, cp pancreatitis, sepsis. 08/23 00:36 Physician consultation: Den PAK was called at 00:36, was contacted at 00:36, cp regarding admission, to the medical/surgical unit. and will see patient in ED, shortly. 00:37 Data reviewed: vital signs, nurses notes, lab test result(s), radiologic studies, CT cp scan. 00:37 Counseling: I had a detailed discussion with the patient and/or guardian regarding: the cp historical points, exam findings, and any diagnostic results supporting the discharge/admit diagnosis, lab results, radiology results, the need for further work-up and treatment in the hospital. Response to treatment: the patient's symptoms have mildly improved after treatment, and as a result, I will admit patient. 08/22 22:13 Order name: Urine Microscopic Only; Complete Time: 23:25 08/22 23:25 Interpretation: Normal except: UWBC 10-20; URBC 5-10; SQEPI 5-10. 08/22 22:13 Order name: Basic Metabolic Panel; Complete Time: 23:25 08/22 23:25 Interpretation: Normal except: NA 134; GLUC 386. 08/22 22:13 Order name: CBC with Diff; Complete Time: 23:25 08/22 23:25 Interpretation: Normal except: RBC 5.11; MCV 74.7; MCH 23.6; MCHC 31.7; RDW 16.7; AMRITA% cp 83.0; LYM% 9.0. 08/22 22:13 Order name: Hepatic Function; Complete Time: 23:25 08/22 23:26 Interpretation: Normal except: AST 10; ALB 3.2; GLOB 4.9; A/G 0.7. 08/22 22:13 Order name: Lipase; Complete Time: 23:25 08/22 22: Order name: Magnesium; Complete Time: 23:25 08/22 22:13 Order name: Procalcitonin; Complete Time: 23:39 08/22 23:39 Interpretation: Abnormal: Procalcitonin 0.13. 08/22 22: Order name: Lactate; Complete Time: 23:25 08/22 22:13 Order name: Blood Culture Adult (2) cp 08/22 22:13 Order name: PT-INR; Complete Time: 23:25 cp 08/22 22:47 Order name: Urine --Ancillary (enter results); Complete Time: 23:25 cs9 08/22 22:53 Order name: COVID-19/FLU A+B; Complete Time: 23:39 EDMS 08/22 22:13 Order name: Urine Dipstick-Ancillary (obtain specimen); Complete Time: 22:47 cp 08/22 22:13 Order name: Urine Test (obtain specimen); Complete Time: 22:47 cp 08/22 22:13 Order name: IV Saline Lock; Complete Time: 22:29 cp 08/22 22:13 Order name: Labs collected and sent; Complete Time: 22:47 cp 08/22 22:46 Order name: CT Stone Protocol 08/22 23:13 Order name: Urine Culture EDDE 08/23 00:27 Order name: PO challenge; Complete Time: 00:38 cp Administered Medications: 08/22 23:00 Drug: NS 0.9% (30 ml/kg) 30 ml/kg Route: IV; Rate: bolus; Site: right antecubital; as6 08/23 00:40 Follow up: Response: No adverse reaction; IV Status: Completed infusion; IV Intake: as6 1428.9ml 08/22 23:00 Drug: morphine 2 mg Route: IVP; Site: right antecubital; as6 23:00 Drug: Zofran (Ondansetron) 4 mg Route: IVP; Site: right antecubital; as08/23 00:39 Follow up: Response: No adverse reaction as08/22 23:07 Drug: Tylenol 650 mg Route: PO; as6 08/23 00:39 Follow up: Response: No adverse reaction as6 08/22 23:54 Drug: morphine 2 mg Route: IVP; Site: right antecubital; as6 08/23 00:39 Follow up: Response: No adverse reaction; RASS: Alert and Calm (0) as6 08/22 23:54 Drug: Rocephin - (cefTRIAXone) 1 grams Route: IVPB; Infused Over: 30 mins; Site: right as6 antecubital; 08/23 00:39 Follow up: Response: No adverse reaction; IV Status: Completed infusion; IV Intake: [id number] Disposition Summary: 08/23/21 00:37 Hospitalization Ordered Hospitalization Status: Inpatient Admission cp [facility] cp Condition: Stable cp Problem: new cp Symptoms: have improved cp Bed/Room Type: Standard cp Room Assignment: [facility](08/23/21 01:05) Provider: Fercho Gan(08/23/21 01:23) cp Diagnosis - Pyelonephritis acute - right cp Forms: - Medication Reconciliation Form cp - SBAR form cp Signatures: Dispatcher [employer] EDMS Vandana Cheney RN RN bb Ulises Martinez PA PA cp Cristi Peralta RN RN as6 Corrections: (The following items were deleted from the chart) 08/22 22:53 22:38 CORONAVIRUS+MR.LAB.BRZ ordered. EDMS EDMS 22:53 22:38 Influenza Screen (A \T\ B)+BA.LAB.BRZ ordered. EDDE EDMS 08/23 01:05 00:37 cp bb 01:23 00:37 Den Torres cp cp
--- NOTE | 2021-08-23 00:37 | ER ---
Nurse's Notes [facility] Name: Lauren Darnell Age: 45 yrs Sex: Female : 1975 Arrival Date: 08/22/2021 Time: 22:09 Bed 6 Private MD: Diagnosis: Pyelonephritis acute-right Presentation: 08/22 22:18 Chief complaint: EMS states: r sided flank pain that started today, fever, cough, as6 nausea. Coronavirus screen: Client presents with at least one sign or symptom that may indicate coronavirus-19. Standard/surgical mask placed on the client. Ebola Screen: No symptoms or risks identified at this time. Initial Sepsis Screen: Does the patient meet any 2 criteria? Yes Does the patient have a suspected source of infection? No. Patient's initial sepsis screen is negative. Risk Assessment: Do you want to hurt yourself or someone else? Patient reports no desire to harm self or others. Onset of symptoms was August 22, 2021. Care prior to arrival: Glucose check: 451. 22:18 Method Of Arrival: EMS: [facility] as6 22:18 Acuity: KAYDEN 3 as6 22:22 Care prior to arrival: IV initiated. 20 GA, in the right antecubital area. as6 MEDICAL COLLECTIONS: 23:41 LMP 08/01/2021 as6 Historical: - Allergies: 22:20 No Known Allergies; as6 - Home Meds: 22:20 metformin 500 mg oral tab 1 tab daily [Active]; as6 - PMHx: 22:20 diabetes mellitus; as6 - PSHx: 22:20 Appendectomy; section; Ligation of fallopian tube; as6 - Immunization history:: Adult Immunizations unknown. - Social history:: Smoking status: Patient denies any tobacco usage or history of. Screenin:23 Abuse screen: Denies threats or abuse. Nutritional screening: No deficits noted. as6 Tuberculosis screening: No symptoms or risk factors identified. Fall Risk None identified. Assessment: 22:21 General: Appears uncomfortable, Behavior is cooperative, restless. Pain: Complains of as6 pain in right flank Quality of pain is described as sharp, shooting. Neuro: Level of Consciousness is awake, alert, obeys commands, Oriented to person, place, time, situation. Cardiovascular: Capillary refill < 3 seconds Patient's skin is warm and dry. Respiratory: Reports cough that is Airway is patent Trachea midline Respiratory effort is even, unlabored, Respiratory pattern is regular, symmetrical. GI: Reports nausea. Derm: Skin is intact, is healthy with good turgor. 23:18 Reassessment: pt in ct at this time. as6 23:38 Reassessment: pt states pain has slightly improved but still c/o pain to r flank. as6 08/23 00:28 Reassessment: Patient appears in no apparent distress at this time. Patient states as6 feeling better. Vital Signs: 08/22 22:18 BP 117 / 72; Pulse 117; Resp 21 S; Temp 100.9(TE); Pulse Ox 98% on R/A; Weight 47.63 kg as6 (R); Height 5 ft. 2 in. (157.48 cm) (R); Pain 9/10; 23:37 BP 125 / 78; Pulse 117; Resp 18 S; Temp 99.5(TE); Pulse Ox 100% on R/A; as6 08/23 00:28 BP 103 / 71; Pulse 110; Resp 23 S; Pulse Ox 97% on R/A; as6 08/22 22:18 Body Mass Index 19.20 (47.63 kg, 157.48 cm) as6 ED Course: 08/22 22:09 Patient arrived in ED. as6 22:09 Cristi Peralta, JL is Primary Nurse. as6 22:11 Ulises Martinez PA is PHCP. cp 22:11 Bianka Aparicio MD is Attending Physician. cp 22:20 Triage completed. as6 22:21 Arm band placed on. as6 22:22 Maintain EMS IV. Dressing intact. Good blood return noted. Site clean \T\ dry. Gauge \T\ as 6 site: 20g r ac. 22:23 Placed in gown. Bed in low position. Call light in reach. Side rails up X2. Cardiac as6 monitor on. Pulse ox on. NIBP on. 23:25 CT Stone Protocol In Process Unspecified. EDMS 08/23 00:36 Den Torres PA is Hospitalizing Provider. cp 01:23 Fercho Gan is Hospitalizing Provider. cp 01:25 No provider procedures requiring assistance completed. Patient admitted, IV remains in as6 place. Administered Medications: 08/22 23:00 Drug: NS 0.9% (30 ml/kg) 30 ml/kg Route: IV; Rate: bolus; Site: right antecubital; as6 08/23 00:40 Follow up: Response: No adverse reaction; IV Status: Completed infusion; IV Intake: as6 1428.9ml 08/22 23:00 Drug: morphine 2 mg Route: IVP; Site: right antecubital; as6 23:00 Drug: Zofran (Ondansetron) 4 mg Route: IVP; Site: right antecubital; as6 08/23 00:39 Follow up: Response: No adverse reaction as6 08/22 23:07 Drug: Tylenol 650 mg Route: PO; as6 08/23 00:39 Follow up: Response: No adverse reaction as6 08/22 23:54 Drug: morphine 2 mg Route: IVP; Site: right antecubital; as6 08/23 00:39 Follow up: Response: No adverse reaction; RASS: Alert and Calm (0) as6 08/22 23:54 Drug: Rocephin - (cefTRIAXone) 1 grams Route: IVPB; Infused Over: 30 mins; Site: right as6 antecubital; 08/23 00:39 Follow up: Response: No adverse reaction; IV Status: Completed infusion; IV Intake: [id number] Intake: 00:39 IV: 50ml; Total: 50ml. as6 00:40 IV: 1429ml; Total: 1479ml. as6 Outcome: 00:37 Decision to Hospitalize by Provider. cp 01:25 Admitted to Med/surg accompanied by tech, via wheelchair, room 225, with chart, Report as6 called to Dylan PARIKH 01:25 Condition: stable 01:26 Patient left the ED. as6 Signatures: Dispatcher [employer] EDMS Ulises Martinez PA PA cp Slawson, Ashby RN RN as6 Corrections: (The following items were deleted from the chart) 08/22 22:53 22:47 CORONAVIRUS+ drawn and sent. as6 EDMS
[2021-08-23 01:37] VITALS: O2SAT 97
[2021-08-23 02:04] VITALS: BMI 19.2
--- NOTE | 2021-08-23 02:10 | P.HP ---
Certification for Inpatient Patient admitted to: Inpatient With expected LOS: <2 Midnights Patient will require the following post-hospital care: None Practitioner: I am a practitioner with admitting privileges, knowledge of patient current condition, hospital course, and medical plan of care. Services: Services provided to patient in accordance with Admission requirements found in Title 42 Section 412.3 of the Code of Federal Regulations Patient History Date of Service: 08/23/21 Reason for admission: pyelonephritis History of Present Illness: Ms. Darnell is a 45 yo F with DM who presents with 2 days of worsening right flank pain. Flank pain is worse with urination, movement, coughing, talking. She reports fever, frequency, nausea and vomiting. Denies urgency, diarrhea, hematuria. She has been taking ibuprofen at home symptomatically. She has had UTIs in the past. She has been out of her metformin for 3 days as she is new to the area and does not have a PCP. She says in the past she was told that one kidney was smaller than the other. Glu 386. procal 0.13. CT A/P: severe left renal atrophy. compensatory hypertrophy of the right kidney. no hydronephrosis or urolithiasis. trace right perinephric fat stranding. correlate for evidence of infection. mildly prominent retroperitoneal lymph nodes, possibly reactive. mild diffuse hepatic steatosis and hepatomegaly. moderate left colonic diverticulosis without evidence of acute diverticulitis. - Past Medical/Surgical History -: DM -: appendectomy -: tubal ligation -: C section x 3 - Family History Mother -: Diabetes, Cancer Notes: breast cancer, lupus - Social History Smoking Status: Current every day smoker Alcohol use: No CD- Drugs: No Caffeine use: Yes Place of Residence: Home Review of Systems 10-point ROS is otherwise unremarkable General: Fever, Chills, Sweats, Malaise Eyes: Unremarkable ENT: Unremarkable Respiratory: Cough Cardiovascular: Unremarkable Gastrointestinal: Nausea, Vomiting, Abdominal Pain Genitourinary: Frequency Musculoskeletal: Unremarkable Integumentary: Unremarkable Neurological: Unremarkable Lymphatics: Unremarkable Physical Examination - Vital Signs Temperature: 99.5 F Blood Pressure: 103/71 Pulse: 110 Respirations: 23 - Physical Exam General: Alert, In no apparent distress HEENT: Atraumatic, PERRLA, Mucous membr. moist/pink, EOMI, Sclerae nonicteric Neck: Supple, 2+ carotid pulse no bruit, No LAD, Without JVD or thyroid abnormality Respiratory: Clear to auscultation bilaterally, Normal air movement Cardiovascular: Regular rate/rhythm, Normal S1 S2 Gastrointestinal: Normal bowel sounds, Tenderness Musculoskeletal: No tenderness Integumentary: No rashes Neurological: Normal speech, Normal strength at 5/5 x4 extr, Normal tone, Normal affect Lymphatics: No axilla or inguinal lymphadenopathy - Studies Laboratory Data (last 24 hrs) 08/22/21 22:35: PT 11.3, INR 0.98 08/22/21 22:35: WBC 8.20, Hgb 12.1, Hct 38.2, Plt Count 206 08/22/21 22:35: Sodium 134 L, Potassium 3.6, BUN 9, Creatinine 0.63, Glucose 386 H, Magnesium 2.1, Total Bilirubin 0.3, AST 10 L, ALT 15, Alkaline Phosphatase 92, Lipase 233 Assessment and Plan - Problems (Diagnosis) (1) Pyelonephritis Current Visit: Yes Status: Acute (2) Left renal atrophy Current Visit: Yes Status: Chronic (3) T2DM (type 2 diabetes mellitus) Current Visit: Yes Status: Chronic 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 use Diabetes mellitus complication status: without complication Qualified Code(s): E11.9 - Type 2 diabetes mellitus without complications - Plan continue IV ceftriaxone, continue IV fluid hydration urine culture pending pain management and antipyretics as needed A1c pending, continue sliding scale insulin DVT ppx Discharge Plan: Home Plan to discharge in: 24 Hours - Advance Directives Does patient have a Living Will: No Does patient have a Durable POA for Healthcare: No - Code Status/Comfort Care Code Status Assessed: Yes (full code ) Critical Care: No Time Spent Managing Pts Care (In Minutes): 70
[2021-08-23] MEDS ORDERED: NA CHLORIDE 0.9% 1,000 ML IV SCH (02:21)
[2021-08-23] MEDS ORDERED: ACETAMINOPHEN 500 MG TAB PO PRN (02:21)
[2021-08-23] MEDS ORDERED: ONDANSETRON 4 MG/2 ML VIAL IV PRN (02:21)
[2021-08-23] MEDS: MORPHINE 2 MG/ML SYR IV PRN ×2 (05:58→12:34)
[2021-08-23] MEDS ORDERED: INFLUENZA VACCINE (for 6+ mo) 0.5 ML DOSE IMVAC ONE (08:00)
[2021-08-23] MEDS ORDERED: POTASSIUM CL SA 10 MEQ TAB PO ONE (09:00)
[2021-08-23] MEDS ORDERED: ENOXAPARIN 40 MG/0.4 ML SQ SCH (09:00)
[2021-08-23] MEDS ORDERED: MORPHINE 2 MG/ML SYR IV ONE (09:21)
[2021-08-23] MEDS: INSULIN -REGULAR HUMAN 50 UNIT/0.5 ML ML SQ SCH ×2 (09:37→12:34)
[2021-08-23 13:31] VITALS: BP 110/66; TEMP 99.7
--- NOTE | 2021-08-23 13:35 | P.DS ---
Admission Date: 08/23/21 Discharge Date: 08/23/21 Disposition: ROUTINE DISCHARGE Discharge Condition: FAIR Reason for Admission: pyelonephritis Brief History of Present Illness: History of Present Illness: Ms. Darnell is a 45 yo F with DM who presents with 2 days of worsening right flank pain. Flank pain is worse with urination, movement, coughing, talking. She reports fever, frequency, nausea and vomiting. Denies urgency, diarrhea, hematuria. She has been taking ibuprofen at home symptomatically. She has had UTIs in the past. She has been out of her metformin for 3 days as she is new to the area and does not have a PCP. She says in the past she was told that one kidney was smaller than the other. Glu 386. procal 0.13. CT A/P: severe left renal atrophy. compensatory hypertrophy of the right kidney. no hydronephrosis or urolithiasis. trace right perinephric fat stranding. correlate for evidence of infection. mildly prominent retroperitoneal lymph nodes, possibly reactive. mild diffuse hepatic steatosis and hepatomegaly. moderate left colonic diverticulosis without evidence of acute diverticulitis. - Past Medical/Surgical History -: DM -: appendectomy -: tubal ligation -: C section x 3 Hospital Course: She was admitted for right pyelonephritis. She has intermittent nausea and vomiting at the time of presentation. She was started on empirical antibiotics with IV. Patient symptoms improved. P.o. antibiotics was initiated. She will be discharged home for a total of 14-day course. Urine culture still pending. Antibiotics will be adjusted with result. She was also initiated on Metformin which she has previously wrapped out of. Patient was advised to avoid high sugary liquid intake and continue medication adherence Vital Signs/Physical Exam: Temp Pulse Resp BP Pulse Ox 98.0 F 108 H 20 120/74 96 08/23/21 08:00 08/23/21 08:00 08/23/21 08:00 08/23/21 08:00 08/23/21 08:00 General: Alert, In no apparent distress, Oriented x3 HEENT: Atraumatic, Normocephalic, PERRLA Neck: Supple, 2+ carotid pulse no bruit, JVD not distended Respiratory: Clear to auscultation bilaterally, Normal air movement Cardiovascular: No edema, Normal pulses, Regular rate/rhythm, Normal S1 S2 Gastrointestinal: Normal bowel sounds, Soft and benign, Non-distended Musculoskeletal: No clubbing, No swelling Integumentary: No rashes, No breakdown, No significant lesion Neurological: Normal speech, Normal strength at 5/5 x4 extr, Normal tone, Cranial nerves 3-12 intact Laboratory Data at Discharge: WBC 8.20 K/uL (4.3-10.9) 08/22/21 22:35 Hgb 12.1 g/dL (12.0-15.0) 08/22/21 22:35 Hct 38.2 % (36.0-45.0) 08/22/21 22:35 Plt Count 206 K/uL (152-406) 08/22/21 22:35 PT 11.3 SECONDS (9.5-12.5) 08/22/21 22:35 INR 0.98 08/22/21 22:35 Sodium 134 mmol/L (136-145) L 08/22/21 22:35 Potassium 3.6 mmol/L (3.5-5.1) 08/22/21 22:35 BUN 9 mg/dL (7-18) 08/22/21 22:35 Creatinine 0.63 mg/dL (0.55-1.3) 08/22/21 22:35 Glucose 386 mg/dL (74-106) H 08/22/21 22:35 Magnesium 2.1 mg/dL (1.8-2.4) 08/22/21 22:35 Total Bilirubin 0.3 mg/dL (0.2-1.0) 08/22/21 22:35 AST 10 U/L (15-37) L 08/22/21 22:35 ALT 15 U/L (12-78) 08/22/21 22:35 Alkaline Phosphatase 92 U/L (45-117) 08/22/21 22:35 Lipase 233 U/L (73-393) 08/22/21 22:35 Home Medications: Levofloxacin [Levaquin] 500 mg PO DAILY #14 tablet 08/23/21 Metformin HCl [Glucophage*] 500 mg PO BIDWM #60 tab 08/23/21 New Medications: Metformin HCl [Glucophage*] 500 mg PO BIDWM #60 tab Levofloxacin [Levaquin] 500 mg PO DAILY #14 tablet Followup: NONE,NONE [Primary Care Provider] - Time spent managing pt's care (in minutes): 35
[2021-08-24] MEDS ORDERED: CEFTRIAXONE 1,000 MG in NA CHLORIDE 0.9% 50 ML IVPB SCH ×2
--- NOTE | 2021-08-25 12:17 | RAD REPORT ---
EXAM DESCRIPTION: Stone Protocol RadLex: CT ABDOMEN PELVIS WITHOUT IV CONTRAST CLINICAL HISTORY: FLANK PAIN. COMPARISON: None. TECHNIQUE: Serial axial CT images were obtained from above the diaphragm through the pubic symphysis without administration of intravenous or oral contrast. All CT scans are performed using dose optimization techniques as appropriate, including automated exp osure control and/or standardized protocols, where dose is adjusted for indication for exam and body habitus. FINDINGS: Thoracic: No significant abnormality. Hepatobiliary: Mild diffuse hepatic steatosis. Hepatomegaly, measuring 20.4 cm in length. No obvious concerning hepatic lesion identified in the absence of intravenous contrast. The gallbladder is unrem arkable. No biliary ductal dilatation. Pancreas: Unremarkable. Spleen: Unremarkable. Gastrointestinal: No evidence of bowel obstruction or perienteric inflammation. The appendix is nonvi sualized, but there are no pericecal inflammatory changes. Moderate left colonic diverticulosis. Smal l to moderate amount of fecal material throughout the colon. Adrenals: No abnormality identified in either adrenal gland. Renal: Severe left renal atrophy. Compensatory hypertrophy of the right kidney. There is trace right perinephric fat stranding. No obvious parenchymal abnormality in either kidney in the absence of intr avenous contrast. No hydronephrosis or urolithiasis. Bladder/Reproductive: Unremarkable appearance of the urinary bladder by CT technique. Unremarkable CT appearance of the uterus and ovaries. Vascular/Lymphatics: Mildly prominent retroperitoneal lymph nodes. Abdominal aorta is normal in calib er. Musculoskeletal: No concerning osseous lesion identified. Fluid / peritoneum: Trace free fluid in the pelvis. No free intraperitoneal air identified. IMPRESSION: 1. Severe left renal atrophy. Compensatory hypertrophy of the right kidney. No hydrone phrosis or urolithiasis. 2. Trace right perinephric fat stranding. Correlate for evidence of infection. 3. Mildly prominent retroperitoneal lymph nodes, possibly reactive. 4. Mild diffuse hepatic steatosis and hepatomegaly. 5. Moderate left colonic diverticulosis without evidence of acute diverticulitis. Electronically signed by: Melany Robertson MD 08/22/2021 11:51 PM [employer] Due to temporary technical issues with the PACS/Fluency reporting system, reports are being signed by the in house radiologists without review as a courtesy to insure prompt reporting. The interpreting radiologist is fully responsible for the content of the report.
== END 2021-08-23 15:38 | disposition home or self-care (01) | DRG 690 ==
LOC: ER 22:06 → ERHOLD 08-23 00:54 → 2ND 08-23 01:10
PROVIDERS: ADMIT Internal Medicine; ATTEND Internal Medicine
DX: N10 Acute pyelonephritis (principal); F17.200 Nicotine dependence, unspecified, uncomplicated; N26.1 Atrophy of kidney (terminal); E11.9 Type 2 diabetes mellitus without complications; Z79.84 Long term (current) use of oral hypoglycemic drugs; Z98.51 Tubal ligation status; Z79.899 Other long term (current) drug therapy; Z20.822 Contact with and (suspected) exposure to COVID-19
CPT/HCPCS: 0240U; 36415; 74176; 76377; 80048; 80076; 81015; 81025; 82947; 83605; 83690; 83735; 84145; 85025; 85610; 87040; 87077; 87086; 87088; 87186; 87205; 96365; 96375; 99285; J1650; J2270; J2405; J7030; J7040; Q2035

== ENCOUNTER 2022-01-25 21:34 | Emergency (ER) | payer SELFPAY ==
--- OUTSIDE RECORDS SUMMARY | 2022-01-25 21:37 | XMS REPORT | Continuity of Care Document ---
:1975 Author Organization [facility] t Address [address] [place] [address] [address]. [address] [place] [address] Care Team Providers Name Role Phone DR [...] no known problems. Allergies, Adverse Reactions, Alerts Allergy Allergy Status Severity Reaction(s) Onset Inactive Treating Comm ents Source Name Type Date Date Clinician No Known DA Active [facility] Medications This patient has no known medications. Vital Signs Vital Name Observation Time Observation Value Comments Source Height 2021-01-05 16:40:00 157.48 CM Weight 2021-01-05 16:40:00 49.89 KG Height 2020-08-07 13:34:00 157.48 CM Weight 2020-08-07 13:34:00 47.62 KG Height 2020-06-13 12:23:00 157.48 CM Weight 2020-06-13 12:23:00 49.89 KG Height 2018-09-25 03:22:00 157.48 CM Weight 2018-09-25 03:22:00 57.15 KG Procedures This patient has no known procedures. Encounters Start End Encounter Admission Attending Care Care Encounter Source Date/Time Date/Time Type Type Clinicians Facility Department ID 2020-08-07 2020-08-07 Outpatient E NIKOS [facility] [id number] [place] 13:28:00 13:55:00 [facility] [place] 2020-06-13 2020-06-13 Outpatient E SHEIKH [facility] [id number] [place] 11:59:00 13:45:00 WASIM [facility] [place] 2020-03-08 2020-03-08 Outpatient AMBREEN_JEFFERSON SDTHOMAS [facility] [id number] [place] 03:00:00 03:00:00 [facility] [id number] [facility] 2018-09-25 2018-09-25 Outpatient E MRAIA LUISA KNOTT [facility] [id number] [place] 03:21:00 04:05:00 [facility] [place] 2018-08-06 2018-08-06 Outpatient E ROLANDO GOLDSTEIN [facility] [id number] [place] 17:55:00 18:45:00 [facility] [place] 2018-06-30 2018-06-30 Outpatient E , [facility] [id number] [place] 17:13:00 18:58:00 WASIM Medica [facility] 2018-05-22 2018-05-22 Outpatient E REUBEN [facility] [id number] [place] 10:38:00 13:27:00 KYA [facility] [place] 2018-04-08 2018-04-08 Outpatient E SHY RAMIREZ [facility] [id number] [place] 11:24:00 12:04:00 [facility] [place] 2018-02-27 2018-02-28 Outpatient E TONIO [facility] [id number] [place] 21:37:00 00:11:00 PEARL [facility] [place] Results Test Description Test Time Test Comments Results Result [facility] e Comments CT ABDOMEN AND 2021-01-05 PELVIS W/O 17:55:05 CONTRAST *OW* [facility] : 1975 Sex: F Ex [...] <0.050 ng/mL 0.000-0.050 GENERAL CHEMISTRY 13 *OW* [id number] 17:35:00 Test Item Value Reference Range Interpretation [...] code = LEUK) [employer] 8 Panel *OW* [id number] 17:20:00 Test Item Value Reference Range Interpretation [...] Antidepressants 1000 ng/mL GENERAL CHEMISTRY 13 *OW* [id number] 12:52:00 Test Item Value Reference Range Interpretation [...] 5.9 % 0.0-10.0 [employer] 8 Panel *OW* [id number] 12:39:00 Test Item Value Reference Range Interpretation [...] code = LEUK) GLUCOMETER GLUCOSE- LAB USE [id number] 18:23:00 Test Item Value Reference Range Interpretation Comments GLUCOMETER (test code = 280 mg/dL 70-100 H Mete r ID: GMG) [id number] tor: 9385 KINJAL GLE NN URINALYSIS W/O [...] 7.1 % 0.0-10.0 GLUCOMETER GLUCOSE- LAB USE [id number] 12:47:00 Test Item Value Reference Range Interpretation Comments GLUCOMETER (test code = 202 mg/dL 70-100 H Mete r ID: GMG) [id number] tor: 3696 DO HENDERSON XR CHEST 1 VIEW *OW*2018-05-22 12:16:40HISTORY: chest painLocation code: [id number]: Frontal view of the chest demonstrates normal [...] % 38.0-51.0 L GLUCOMETER GLUCOSE- LAB USE [id number] 11:44:00 Test Item Value Reference Range Interpretation Comments GLUCOMETER (test code = 316 mg/dL 70-100 H Mete r ID: GMG) [id number] tor: 9385 KINJAL ROSARIO PROTHROMBIN TIME i-STAT [...] Most Other Applications GLUCOMETER GLUCOSE- LAB USE [id number] 23:39:00 Test Item Value Reference Range Interpretation Comments GLUCOMETER (test code = 199 mg/dL 70-100 H Mete r ID: GMG) [id number] tor: 9362 TIERRA MIR TROPONIN I i-STAT [...]
[2022-01-25 22:22] LABS: Urine Blood Trace-intact (Negative); Urine Glucose 3+ (Negative); Urine Protein Negative (Negative); Urine pH 6.5 (5.0-7.0)
[2022-01-25 22:25] LABS: Absolute Lymphocytes (CBC) 1.8 K/uL (0.7-4.9); Hematocrit 40.1 % (36.0-45.0); Lymphocytes % 34.2 % (15.3-44.8); MPV 9.4 fL (7.6-11.3); RBC Red Blood Cell Count 5.11 M/uL (3.86-4.86)
[2022-01-25 22:42] LABS: Albumin 3.6 g/dL (3.4-5.0); Bilirubin Total 0.2 mg/dL (0.2-1.0); Potassium 3.9 mmol/L (3.5-5.1); Protein, Total 7.3 g/dL (6.4-8.2)
[2022-01-26] MEDS ORDERED: ONDANSETRON 4 MG/2 ML VIAL ONE (00:21)
--- NOTE | 2022-01-26 01:13 | EDPHYS ---
Physician Documentation [facility] Name: Lauren Darnell Age: 46 yrs Sex: Female : 1975 Arrival Date: 01/25/2022 Time: 21:36 Bed 2 Private MD: ED Physician Ulises Gavin HPI: 01/25 22:55 This 46 yrs old Unknown Female presents to ER via Ambulatory with complaints of Nausea, cp LOSS OF APPETITE, General Weakness. 22:55 The patient presents to the emergency department with nausea, that is moderate. Onset: cp The symptoms/episode began/occurred yesterday. Possible causes: unknown. Associated signs and symptoms: Pertinent positives: abdominal pain, decreased appetite, general weakness, Pertinent negatives: fever. 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 - Social history:: Smoking status: Patient reports the use of cigarette tobacco products, smokes one pack cigarettes per day. ROS: 23:00 Constitutional: Negative for body aches, chills, fever, poor PO intake, weight loss. cp 23:00 Eyes: Negative for injury, pain, redness, and discharge. cp 23:00 ENT: Negative for drainage from ear(s), ear pain, sore throat, difficulty swallowing, difficulty handling secretions. 23:00 Cardiovascular: Negative for chest pain, palpitations. 23:00 Respiratory: Negative for cough, shortness of breath, wheezing. 23:00 Abdomen/GI: Positive for abdominal pain, nausea, of the lower abdomen, decreased appetite. 23:00 Back: Negative for pain at rest, pain with movement, radiated pain. 23:00 : Negative for urinary symptoms, vaginal bleeding, vaginal discharge. 23:00 Neuro: Positive for weakness, Negative for altered mental status, dizziness, headache. 23:00 All other systems are negative. Exam: 23:05 Constitutional: The patient appears in no acute distress, alert, awake, non-toxic, well cp developed, well nourished. 23:05 Head/Face: Normocephalic, atraumatic. cp 23:05 Eyes: Periorbital structures: appear normal, Conjunctiva: normal, no exudate, no injection, Sclera: no appreciated abnormality, Lids and lashes: appear normal, bilaterally. 23:05 ENT: External ear(s): are unremarkable, Nose: is normal, Mouth: Lips: moist, Oral mucosa: moist, Posterior pharynx: Airway: no evidence of obstruction, patent. 23:05 Chest/axilla: Inspection: normal. 23:05 Cardiovascular: Rate: normal. 23:05 Respiratory: the patient does not display signs of respiratory distress, Respirations: normal, no use of accessory muscles, labored breathing, is not present, Breath sounds: are clear throughout, no decreased breath sounds. 23:05 Abdomen/GI: Inspection: abdomen appears normal, Bowel sounds: active, all quadrants, Palpation: soft, in all quadrants, mild abdominal tenderness, in the suprapubic area, rebound tenderness, is not appreciated, involuntary guarding, is not appreciated. 23:05 Back: CVA tenderness, is absent. Vital Signs: 22:03 BP 112 / 89; Pulse 81; Resp 18; Temp 98.0; Pulse Ox 99% on R/A; Height 5 ft. 2 in. tw5 (157.48 cm); Pain 7/10; 22:03 Weight 48.99 kg; tw5 MDM: 23:00 Differential diagnosis: gastritis, appendicitis, diverticulitis, viral gastroenteritis, cp gastroenteritis. 01/26 00:00 Patient medically screened. [facility] 01:11 Data reviewed: vital signs, nurses notes, lab test result(s), radiologic studies, CT cp scan. 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 ED course: VSS. Patient appears non-toxic. Will treat with oral antibiotics and discharge to home for continued monitoring. 01/25 22:06 Order name: CBC with Diff; Complete Time: 22:58 tw5 01/25 22:06 Order name: CMP; Complete Time: 22:58 tw 01/25 22:06 Order name: Lipase; Complete Time: 22:58 [facility] 01/25 22:23 Order name: Urine Dipstick-Ancillary [facility] 01/25 22:25 Order name: Glucose, Ancillary Testing; Complete Time: 22:58 [facility] 01/25 22:06 Order name: IV Saline Lock; Complete Time: 22:16 tw5 01/25 22:06 Order name: Labs collected and sent; Complete Time: 22:16 [facility] 01/25 22:09 Order name: Urine Dipstick-Ancillary (obtain specimen); Complete Time: 22:21 tw5 01/25 22:59 Order name: CT Abd/Pelvis - IV Contrast Only cp Administered Medications: 00:21 Drug: Zofran (Ondansetron) 4 mg Route: IVP; Site: right antecubital; ke1 01:40 Drug: Cipro (ciprofloxacin) 500 mg Route: PO; ke1 01:41 Drug: metroNIDAZOLE 500 mg Route: PO; ke1 Disposition Summary: 01/26/22 01:12 Discharge Ordered Location: Home cp Problem: new cp Symptoms: have improved cp Condition: Stable cp Diagnosis - Diverticulitis of large intestine without perforation or abscess without bleeding cp Followup: cp - With: Fara Pickens MD - When: 1 week - Reason: Recheck today's complaints Discharge Instructions: - Discharge Summary Sheet cp - High-Fiber Diet cp - Diverticulitis cp - Form - Excuse from Work, School, or Physical Activity cp Forms: - Medication Reconciliation Form cp - Thank You Letter cp - Antibiotic Education cp - Prescription Opioid Use cp Prescriptions: - Cipro 500 mg Oral Tablet - take 1 tablet by ORAL route every 12 hours for 10 days; 20 tablet; Refills: 0, cp Product Selection Permitted - Zofran 4 mg Oral Tablet - take 1 tablet by ORAL route every 12 hours As needed; 20 tablet; Refills: 0, cp Product Selection Permitted - Metronidazole 500 mg Oral Tablet - take 1 tablet by ORAL route every 8 hours; 30 tablet; Refills: 0, Product cp Selection Permitted - dicyclomine 20 mg Oral Tablet - take 1 tablet by ORAL route 4 times per day; 30 tablet; Refills: 0, Product cp Selection Permitted Signatures: Dispatcher [employer] EDMS Ulises Gavin MD MD neetu Page, Ulises, PA Saima Sifuentes cp tw5 Tyshawn Pineda RN RN ke1 Corrections: (The following items were deleted from the chart) 01/25 23:52 22:55 Associated signs and symptoms: Pertinent positives: abdominal pain, Pertinent cp negatives: fever, cp
--- NOTE | 2022-01-26 01:13 | ER ---
Nurse's Notes [facility] Name: Lauren Darnell Age: 46 yrs Sex: Female : 1975 Arrival Date: 01/25/2022 Time: 21:36 Bed 2 Private MD: Diagnosis: Diverticulitis of large intestine without perforation or abscess without bleeding Presentation: 01/25 22:03 Chief complaint: Patient states: "It started last night I was unable to go to work tw5 today. It started off as nausea and a headache, my stomach is sore, I slept most of of the day. Now I just don't have an appetite and I cannot really eat anything.". Coronavirus screen: Vaccine status: Patient reports being unvaccinated. Ebola Screen: Patient negative for fever greater than or equal to 101.5 degrees Fahrenheit, and additional compatible Ebola Virus Disease symptoms Patient denies exposure to infectious person. Patient denies travel to an Ebola-affected area in the 21 days before illness onset. Initial Sepsis Screen: Does the patient meet any 2 criteria? No. Patient's initial sepsis screen is negative. Does the patient have a suspected source of infection? No. Patient's initial sepsis screen is negative. Risk Assessment: Do you want to hurt yourself or someone else? Patient reports no desire to harm self or others. Onset of symptoms was January 25, 2022. 22:03 Method Of Arrival: Ambulatory tw5 22:03 Acuity: KAYDEN 3 tw5 Triage Assessment: 22:07 General: Appears in no apparent distress. Behavior is calm, cooperative, appropriate tw5 for age. Pain: Complains of pain in right lower quadrant and left lower quadrant Pain currently is 7 out of 10 on a pain scale. GI: Reports lower abdominal pain. 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 - Social history:: Smoking status: Patient reports the use of cigarette tobacco products, smokes one pack cigarettes per day. Screenin:09 Abuse screen: Denies threats or abuse. Denies injuries from another. Nutritional tw5 screening: Had unintentional weight loss of 10 pounds or more. Tuberculosis screening: Possible symptoms: unexplained weight loss. Fall Risk None identified. Assessment: 01/26 01:00 GI: Abdomen is flat, non-distended. ke1 Vital Signs: 01/25 22:03 BP 112 / 89; Pulse 81; Resp 18; Temp 98.0; Pulse Ox 99% on R/A; Height 5 ft. 2 in. tw5 (157.48 cm); Pain 7/10; 22:03 Weight 48.99 kg; tw5 ED Course: 21:36 Patient arrived in ED. jj6 22:06 Triage completed. tw5 22:07 Arm band placed on right wrist. tw5 22:09 Patient has correct armband on for positive identification. tw5 22:21 CBC with Diff Sent. mb7 22:21 CMP Sent. mb7 22:21 Lipase Sent. mb7 22:22 Inserted saline lock: 20 gauge in right antecubital area, using aseptic technique. mb7 Blood collected. 22:32 Ulises Martinez PA is PHCP. cp 22:32 Ulises Gavin MD is Attending Physician. cp 01/26 00:05 Brittany Eduardo, JL is Primary Nurse. kd3 00:41 CT Abd/Pelvis - IV Contrast Only In Process Unspecified. EDMS 01:12 Fara Pickens MD is Referral Physician. cp 01:41 No provider procedures requiring assistance completed. IV discontinued. ke1 Administered Medications: 00:21 Drug: Zofran (Ondansetron) 4 mg Route: IVP; Site: right antecubital; ke1 01:40 Drug: Cipro (ciprofloxacin) 500 mg Route: PO; ke1 01:41 Drug: metroNIDAZOLE 500 mg Route: PO; ke1 Medication: 01:42 VIS not applicable for this client. ke1 Outcome: 01:12 Discharge ordered by . cp 01:41 Discharged to home ambulatory. ke1 01:41 Condition: good 01:41 Discharge instructions given to patient. 01:42 Patient left the ED. ke1 Signatures: Dispatcher [employer] EDMS Ulises Martinez PA PA Saima Hardin tw5 Ayah Hurst jj6 Brittany Eduardo, RN RN kd3 Shey Francisco mb7 Tyshawn Pineda, RN RN ke1
[2022-01-26] MEDS ORDERED: CIPROFLOXACIN HCL 500 MG TAB ONE (01:32)
[2022-01-26] MEDS ORDERED: metroNIDAZOLE 500 MG TABLET ONE (01:32)
[2022-01-26 01:59] VITALS: BP 112/89; TEMP 98; O2SAT 99
--- NOTE | 2022-01-27 12:43 | RAD REPORT ---
EXAM DESCRIPTION: CT - Abdomen Pelvis W Contrast - 01/26/2022 5:50 am CLINICAL HISTORY: LLQ abdominal pain. COMPARISON: CT of the abdomen and pelvis without contrast from August 22, 2021. TECHNIQUE: CT of the abdomen and pelvis was performed following intravenous administration of iodina ivone contrast. Arterial phase images through the abdomen, and portal venous phase images through the a bdomen and pelvis were obtained. Oral contrast was not administered. Axial, coronal, and sagittal sof t tissue window reconstructions were created and sent to PACS. This exam was performed according to our departmental dose-optimization program, which includes autom ated exposure control, adjustment of the mA and/or kV according to patient size and/or use of iterati ve reconstruction technique. FINDINGS: Thoracic: No significant abnormality. Hepatobiliary: Hepatomegaly, measuring 19.6 cm in length. No concerning hepatic lesion identified. Th e portal veins are patent. The gallbladder is unremarkable. No biliary ductal dilatation. Pancreas: Unremarkable. Spleen: Unremarkable. Gastrointestinal: There is mild to moderate left colonic diverticulosis. Trace wall thickening and fa t stranding involving a diverticulum of the mid descending colon (axial series 501 image 43, coronal series 502 image 50). Small to moderate amount of fecal material throughout the colon. No evidence of bowel obstruction. The appendix is not visualized, but there are no pericecal inflammatory changes. Adrenals: No abnormality identified in either adrenal gland. Renal: Chronic severe left renal atrophy. Compensatory hypertrophy of the right kidney. No concerning parenchymal abnormality in either kidney. No hydronephrosis or urolithiasis. Bladder/Reproductive: Unremarkable appearance of the urinary bladder by CT technique. Unremarkable CT appearance of the uterus and ovaries. Vascular/Lymphatics: No lymphadenopathy identified by CT size criteria. Abdominal aorta is normal in caliber. Mild mixed atherosclerosis. Musculoskeletal: No concerning osseous lesion identified. Fluid / peritoneum: No significant free fluid. No free intraperitoneal air identified. IMPRESSION 1. Mild acute descending colonic diverticulitis, uncomplicated. 2. Chronic severe left renal atrophy. Electronically signed by: Melany Robertson MD 01/26/2022 12:47 AM CDT Due to temporary technical issues with the PACS/Fluency reporting system, reports are being signed by the in house radiologist without review as a courtesy to ensure prompt reporting. The interpreting r adiologist is fully responsible for the content of the report.
== END 2022-01-26 01:42 | disposition home or self-care (01) ==
LOC: ER 21:34
DX: K57.32 Diverticulitis of large intestine without perforation or abscess without bleeding (principal); E11.9 Type 2 diabetes mellitus without complications; F17.210 Nicotine dependence, cigarettes, uncomplicated
CPT/HCPCS: 36415; 74177; 80053; 81003; 82947; 83690; 85025; 96374; 99284; J2405; Q9967

== ENCOUNTER 2024-01-02 20:35 | Emergency (ER) | payer SELFPAY ==
[2024-01-02] MEDS ORDERED: MAGNES/ALUMIN/SIMET 30ML UCUP ONE (21:00)
[2024-01-02] MEDS ORDERED: PANTOPRAZOLE 40 MG INJ ONE (21:00)
[2024-01-02] MEDS ORDERED: LIDOCAINE VISCOUS 2% 10ML ORAL SOLN ONE (21:01)
[2024-01-02] MEDS ORDERED: ACETAMINOPHEN 500 MG TAB ONE (21:01)
[2024-01-02] MEDS ORDERED: ASPIRIN EC 81 MG TAB PO ONE (21:01)
[2024-01-02] MEDS ORDERED: NA CHLORIDE 0.9% 1,000 ML ONE (21:02)
--- NOTE | 2024-01-02 21:23 | RAD REPORT ---
EXAM DESCRIPTION: RAD - Chest Single View - 01/02/2024 9:17 pm CLINICAL HISTORY: CHEST PAIN Chest pain. COMPARISON: No comparisons FINDINGS: Portable technique limits examination quality. The lungs are grossly clear. The heart is normal in size. No displaced fractures. IMPRESSION: No acute intrathoracic process suspected.
[2024-01-02 21:38] LABS: Protime INR 1.09
[2024-01-02 21:42] LABS: SARS-CoV-2 Antigen CONTROL BLUE LINE VIS/BG OK; SARS-CoV-2 Antigen Rapid Res Negative (Negative)
[2024-01-02 21:48] LABS: ALT/SGPT 16 U/L (13-56); AST/SGOT 10 U/L (15-37); Albumin 3.1 g/dL (3.4-5.0); Albumin/Globulin Ratio 0.8 (1.1-1.8); Alkaline Phosphatase 72 U/L (45-117); Anion Gap 10.4 mEq/L (5.0-15.0); BUN Blood Urea Nitrogen 8 mg/dL (7-18); Bicarbonate 24 mEq/L (21-32); Bilirubin Direct 0.1 mg/dL (0-0.2); Bilirubin Indirect, Calculated 0.4 mg/dL (0.2-0.8); Bilirubin Total 0.5 mg/dL (0.2-1.0); Globulin 3.7 g/dL (2.3-3.5); Glomerular Filtration Rate 109 ml/min (=/>90); Glucose Level 303 mg/dL (74-106); Lipase 48 U/L (13-75); Magnesium 1.5 mg/dL (1.6-2.4); NT PRO-BNP 111 pg/mL (<125); Potassium 3.4 mEq/L (3.5-5.1); Protein, Total 6.8 g/dL (6.4-8.2); Sodium Level 134 mEq/L (136-145); Troponin High Sensitivity < 3.0 pg/mL (<58.9)
[2024-01-02] MEDS ORDERED: POTASSIUM 25 MEQ EFFERV TAB ONE (21:56)
[2024-01-02] MEDS ORDERED: MAGNESIUM SULFATE 1 gm IVPB 1 GM/100 ML BAG IV ONE (21:56)
[2024-01-02 22:00] LABS: Absolute Eosinophils 0.1 K/uL (0-0.5); Absolute Lymphocytes (CBC) 0.3 K/uL (0.7-4.9); Absolute Monocytes 0.2 K/uL (0.1-1.3); Absolute Neutrophil 7.6 K/uL (1.8-8.0); Basophils % 0.2 % (0-1.3); Eosinophils % 0.9 % (0-4.4); Hematocrit 35.8 % (36.0-45.0); Lymphocytes % 3.8 % (15.3-44.8); MCH 25.4 pg (27.0-35.0); MCHC 33.6 g/dL (32.0-36.0); MCV 75.5 fL (80-100); MPV 9.1 fL (7.6-11.3); Neutrophils % 93.1 % (41.7-73.7); Nucleated Red Blood Cells % 0.1 % (0-0); Platelets 165 thou/uL (152-406); RBC Red Blood Cell Count 4.75 M/uL (3.86-4.86); Red Cell Distribution Width 14.3 % (12.1-15.2)
--- NOTE | 2024-01-02 22:40 | RAD REPORT ---
EXAM DESCRIPTION: CT - Chest For Pe Angio - 01/02/2024 10:30 pm CLINICAL HISTORY: Chest pain. CHEST PAIN COMPARISON: No comparisons TECHNIQUE: CT angiogram of the pulmonary arteries was performed with MIP. All CT scans are performed using dose optimization technique as appropriate and may include automated exposure control or mA/KV adjustment according to patient size. FINDINGS: No evidence of pulmonary thromboembolism. No acute aortic finding demonstrated. The lungs are clear. No significant pericardial or pleural fluid. No concerning bony finding. IMPRESSION: No evidence of pulmonary thromboembolism. No acute lung findings.
--- NOTE | 2024-01-02 22:57 | ER ---
Nurse's Notes [facility] Name: Lauren Darnell Age: 48 yrs Sex: Female : 1975 Arrival Date: 01/02/2024 Time: 20:35 Bed 5 Private MD: Diagnosis: Fever, unspecified;Acute upper respiratory infection, unspecified;Type 2 diabetes mellitus with hyperglycemia;Hypomagnesemia;Hypokalemia;Chest pain, unspecified Presentation: 01/01 20:41 Chief complaint: EMS states: 48 year old female complaining of body chills, N/V, and ha1 chest pain. 20:41 Coronavirus screen: Vaccine status: Patient reports being unvaccinated. Ebola Screen: ha1 No symptoms or risks identified at this time. Initial Sepsis Screen: Does the patient meet any 2 criteria? Does the patient have a suspected source of infection? No. Patient's initial sepsis screen is negative. Risk Assessment: Do you want to hurt yourself or someone else? Patient reports no desire to harm self or others. Onset of symptoms was January 02, 2024. 20:41 Method Of Arrival: EMS: [facility] ha1 20:41 Acuity: KAYDEN 3 ha1 Triage Assessment: 20:41 General: Appears uncomfortable, Behavior is calm, cooperative. Pain: Complains of pain ha1 in chest Pain does not radiate. Pain currently is 7 out of 10 on a pain scale. Quality of pain is described as burning, Pain began suddenly. Neuro: Level of Consciousness is awake, alert, obeys commands, Oriented to person, place, time, situation, Moves all extremities. Cardiovascular: Reports chest pain, Heart tones S1 S2 present Capillary refill < 3 seconds Patient's skin is warm and dry. Respiratory: Airway is patent Respiratory effort is even, unlabored, Respiratory pattern is regular, symmetrical. GI: Abdomen is flat, non-distended, Bowel sounds present X 4 quads. Reports nausea, vomiting. Derm: Skin is pink, warm \T\ dry. Musculoskeletal: Circulation, motion, and sensation intact. Range of motion: intact in all extremities. 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 - Infectious Disease History:: Denies. - Family history:: not pertinent. - Social history:: Smoking status: Patient/guardian denies using tobacco, the patient reports quitting approximately 1 years ago. Screenin:18 [facility] ED Fall Risk Assessment (Adult) History of falling in the last 3 months, ha1 including since admission No falls in past 3 months (0 pts) Confusion or Disorientation No (0 pts) Intoxicated or Sedated No (0 pts) Impaired Gait No (0 pts) Mobility Assist Device Used No (0 pt) Altered Elimination No (0 pt) Score/Fall Risk Level 0 - 2 = Low Risk Oriented to surroundings, Maintained a safe environment, Educated pt \T\ family on fall prevention, incl call for assistance when getting out of bed, Hourly rounding (assess needs \T\ fall precautionary measures) done. Abuse screen: Denies threats or abuse. Denies injuries from another. Nutritional screening: No deficits noted. Tuberculosis screening: No symptoms or risk factors identified. Assessment: 20:41 Reassessment: see triage assessment. ha1 21:45 Reassessment: Patient and/or family updated on plan of care and expected duration. Pain ha1 level reassessed. Patient is alert, oriented x 3, equal unlabored respirations, skin warm/dry/pink. Patient denies pain at this time. 22:45 Reassessment: Patient and/or family updated on plan of care and expected duration. Pain ha1 level reassessed. Patient is alert, oriented x 3, equal unlabored respirations, skin warm/dry/pink. 23:40 Reassessment: Patient and/or family updated on plan of care and expected duration. Pain ha1 level reassessed. Patient is alert, oriented x 3, equal unlabored respirations, skin warm/dry/pink. 01/02 00:42 Reassessment: Patient and/or family updated on plan of care and expected duration. Pain ha1 level reassessed. Patient is alert, oriented x 3, equal unlabored respirations, skin warm/dry/pink. Vital Signs: 01/01 20:41 BP 114 / 76; Pulse 114; Resp 18 S; Temp 99.9(O); Pulse Ox 97% on R/A; Weight 50.35 kg; ha1 Height 5 ft. 2 in. ; Pain 7/10; 21:45 BP 121 / 81; Pulse 105; Resp 17 S; Pulse Ox 98% on R/A; ha1 22:11 Temp 99(O); ha1 22:40 BP 100 / 70; Pulse 94; Resp 17 S; Pulse Ox 98% on R/A; ha1 23:30 BP 98 / 72; Pulse 90; Resp 17 S; Temp 98.7(T); Pulse Ox 99% ; ha1 01/02 00:24 BP 94 / 69 Supine; Pulse 91; Resp 17; Pulse Ox 99% on R/A; ha1 00:26 BP 97 / 67; Pulse 89; Resp 17 S; Pulse Ox 98% on R/A; ha1 00:30 BP 104 / 64 Standing; Pulse 92; Resp 17 S; Pulse Ox 100% on R/A; ha1 01/01 20:41 Body Mass Index 20.30 (50.35 kg, 157.48 cm) ha1 01/01 20:41 Pain Scale: Adult ha ED Course: 01/01 20:41 Patient arrived in ED. ty 20:41 Ulises Gavin MD is Attending Physician. neetu 20:41 Arm band placed on right wrist. ha1 20:41 Patient has correct armband on for positive identification. Placed in gown. Bed in low ha1 position. Call light in reach. Side rails up X 1. 20:52 Josee Sewell, RN is Primary Nurse. ha1 20:52 Basic Metabolic Panel Sent. ha1 20:52 CBC with Diff Sent. ha1 20:52 LFT's Sent. ha1 20:52 Magnesium Sent. ha1 20:52 NT PRO-BNP Sent. ha1 20:52 PT-INR Sent. ha1 20:52 Troponin HS Sent. ha1 21:14 Triage completed. ha1 21:17 Maintain EMS IV. Dressing intact. Good blood return noted. Site clean \T\ dry. Gauge \T\ wallace 1 site: 20 gauge RAC. 21:18 XRAY Chest (1 view) In Process Unspecified. EDMS 22:31 CT Chest For PE Angio In Process Unspecified. EDMS 22:58 Prosper Estrella MD is Referral Physician. neetu 23:04 US Extremity Venous W Compression Jay In Process Unspecified. EDMS 23:49 Repeat lab(s) drawn. by me, sent to lab. ty 23:50 Troponin High Sensitivity: now 11 pm Sent. ty 01/02 00:45 No provider procedures requiring assistance completed. IV discontinued, intact, ha1 bleeding controlled, No redness/swelling at site. Pressure dressing applied. 00:45 Provided Education on: medication administration . ha1 Administered Medications: 01/01 20:54 Not Given (Duplicate Order): GI Cocktail without - (maaloxsuspension 30 ml, neetu lidocaine mucous membrane liquid 2 % 15 ml) PO once 20:54 Not Given (Duplicate Order): [id number] mg IVP once neetu 21:09 Drug: NS 0.9% IV 1000 ml IV at 1 bolus Per protocol; 1000 mL bolus Route: IV; Rate: 1 ha1 bolus; Site: right antecubital; 23:30 Follow up: Response: No adverse reaction; IV Status: Completed infusion; IV Intake: ha1 1000ml 21:11 Drug: Aspirin PO Chewable Tablet 81 mg PO once Route: PO; ha1 22:10 Follow up: Response: No adverse reaction; Marked relief of symptoms ha1 21:11 Drug: Acetaminophen PO 1000 mg PO once Route: PO; ha1 22:10 Follow up: Response: No adverse reaction; Marked relief of symptoms; Temperature is ha1 decreased 21:11 Drug: Pantoprazole IVP 40 mg IVP once Route: IVP; Site: right antecubital; ha1 21:40 Follow up: Response: No adverse reaction; Marked relief of symptoms ha1 21:11 Drug: GI Cocktail without - (Maalox PO 30 ml, Lidocaine Mucous Membrane 2 % 15 ha1 ml) PO once Route: PO; 21:40 Follow up: Response: No adverse reaction; Marked relief of symptoms ha1 22:04 Drug: Potassium PO Effervescent Tablet 25 mEq PO once; dissolve in 4 ounces of water or ha1 juice Route: PO; 23:52 Follow up: Response: No adverse reaction ha1 22:05 Drug: Magnesium Sulfate IVPB 1 grams IVPB once over 1 hrs Route: IVPB; Infused Over: 1 ha1 hrs; Site: right antecubital; 23:52 Follow up: Response: No adverse reaction; IV Status: Completed infusion; IV Intake: ha1 100ml 23:52 Drug: Ondansetron IVP 4 mg IVP once; over 2 minutes Route: IVP; Site: right antecubital;ha1 01/02 00:41 Follow up: Response: No adverse reaction; Marked relief of symptoms ha1 Medication: 00:45 VIS not applicable for this client. ha1 Intake: 01/01 23:30 IV: 1000ml; Total: 1000ml. ha1 23:52 IV: 100ml; Total: 1100ml. ha1 Outcome: 22:57 Discharge ordered by . neetu 01/02 00:22 Discharge ordered by . neetu 00:45 Discharged to home ambulatory, ha1 00:45 Condition: stable 00:45 Discharge instructions given to patient, Instructed on discharge instructions, follow up and referral plans. medication usage, Demonstrated understanding of instructions, follow-up care, medications, Prescriptions given X 2, 00:46 Patient left the ED. ha1 Signatures: Dispatcher [employer] EDUlises Moralez MD MD cha Ayala, Heidy, RN RN ha1 Maximiliano Baird
--- NOTE | 2024-01-02 22:57 | EDPHYS ---
Physician Documentation [facility] Name: Lauren Darnell Age: 48 yrs Sex: Female : 1975 Arrival Date: 01/02/2024 Time: 20:35 Bed 5 Private MD: ED Physician Ulises Gavin HPI: 01/01 20:57 This 48 yrs old Unknown Female presents to ER via Unassigned with complaints of malaise neetu , cp , body aches. 20:57 The patient or guardian reports chest pain that is located primarily in the anterior neetu chest wall, bilaterally. Onset: just prior to arrival. weak, cough , cp , body pain. The pain does not radiate. Associated signs and symptoms: Pertinent positives: cough. The chest pain is described as aching. Modifying factors: The symptoms are alleviated by nothing. the symptoms are aggravated by nothing. Severity of pain: At its worst the pain was mild in the emergency department the pain is unchanged. 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 - Infectious Disease History:: Denies. - Family history:: not pertinent. - Social history:: Smoking status: Patient/guardian denies using tobacco, the patient reports quitting approximately 1 years ago. ROS: 20:57 Eyes: Negative for injury, pain, redness, and discharge, ENT: Negative for injury, neetu pain, and discharge, Neck: Negative for injury, pain, and swelling, Cardiovascular: Negative for chest pain, palpitations, and edema, Abdomen/GI: Negative for abdominal pain, nausea, vomiting, diarrhea, and constipation, Back: Negative for injury and pain, : Negative for injury, bleeding, discharge, and swelling, MS/Extremity: Negative for injury and deformity, Skin: Negative for injury, rash, and discoloration, Neuro: Negative for headache, weakness, numbness, tingling, and seizure, Psych: Negative for depression, anxiety, suicide ideation, homicidal ideation, and hallucinations, Allergy/Immunology: Negative for hives, rash, and allergies, Endocrine: Negative for neck swelling, polydipsia, polyuria, polyphagia, and marked weight changes, Hematologic/Lymphatic: Negative for swollen nodes, abnormal bleeding, and unusual bruising, 20:57 Constitutional: Positive for body aches, chills, fatigue, fever, malaise, 20:57 Respiratory: Positive for cough, with no reported sputum, Exam: 20:57 Constitutional: This is a well developed, well nourished patient who is awake, alert, neetu and in no acute distress. Head/Face: Normocephalic, atraumatic. Eyes: Pupils equal round and reactive to light, extra-ocular motions intact. Lids and lashes normal. Conjunctiva and sclera are non-icteric and not injected. Cornea within normal limits. Periorbital areas with no swelling, redness, or edema. ENT: Nares patent. No nasal discharge, no septal abnormalities noted. Tympanic membranes are normal and external auditory canals are clear. Oropharynx with no redness, swelling, or masses, exudates, or evidence of obstruction, uvula midline. Mucous membranes moist. Neck: Trachea midline, no thyromegaly or masses palpated, and no cervical lymphadenopathy. Supple, full range of motion without nuchal rigidity, or vertebral point tenderness. No Meningismus. Chest/axilla: Normal chest wall appearance and motion. Nontender with no deformity. No lesions are appreciated. Respiratory: Lungs have equal breath sounds bilaterally, clear to auscultation and percussion. No rales, rhonchi or wheezes noted. No increased work of breathing, no retractions or nasal flaring. Abdomen/GI: Soft, non-tender, with normal bowel sounds. No distension or tympany. No guarding or rebound. No evidence of tenderness throughout. Back: No spinal tenderness. No costovertebral tenderness. Full range of motion. Skin: Warm, dry with normal turgor. Normal color with no rashes, no lesions, and no evidence of cellulitis. MS/ Extremity: Pulses equal, no cyanosis. Neurovascular intact. Full, normal range of motion. Neuro: Awake and alert, GCS 15, oriented to person, place, time, and situation. Cranial nerves II-XII grossly intact. Motor strength 5/5 in all extremities. Sensory grossly intact. Cerebellar exam normal. Normal gait. Psych: Awake, alert, with orientation to person, place and time. Behavior, mood, and affect are within normal limits. 20:57 Cardiovascular: Rate: tachycardic, actual rate is 113 bpm, Rhythm: regular, Pulses: Pulses are 4+ in bilateral radial, brachial, femoral, popliteal, posterior tibial and and dorsalis pedis arteries.. Heart sounds: normal, normal S1and S2, no S3 or S4, no murmur, no rub, no gallop, Edema: is not appreciated, JVD: is not appreciated, 20:57 ECG was reviewed by the Attending Physician. 23:48 ECG was reviewed by the Attending Physician. [facility] Vital Signs: 20:41 BP 114 / 76; Pulse 114; Resp 18 S; Temp 99.9(O); Pulse Ox 97% on R/A; Weight 50.35 kg; ha1 Height 5 ft. 2 in. ; Pain 7/10; 21:45 BP 121 / 81; Pulse 105; Resp 17 S; Pulse Ox 98% on R/A; ha1 22:11 Temp 99(O); 1 22:40 BP 100 / 70; Pulse 94; Resp 17 S; Pulse Ox 98% on R/A; 1 23:30 BP 98 / 72; Pulse 90; Resp 17 S; Temp 98.7(T); Pulse Ox 99% ; [facility] 01/02 00:24 BP 94 / 69 Supine; Pulse 91; Resp 17; Pulse Ox 99% on R/A; ha1 00:26 BP 97 / 67; Pulse 89; Resp 17 S; Pulse Ox 98% on R/A; ha1 00:30 BP 104 / 64 Standing; Pulse 92; Resp 17 S; Pulse Ox 100% on R/A; 1 01/01 20:41 Body Mass Index 20.30 (50.35 kg, 157.48 cm) [facility] 01/01 20:41 Pain Scale: Adult [facility] MDM: 01/01 20:41 Patient medically screened. [facility] 21:01 Differential diagnosis: abnormal EKG, acute myocardial infarction, acute pericarditis, neetu anxiety, coronary artery disease chest wall pain, costochondritis, esophagitis, gastritis, hiatal hernia, pancreatitis, peptic ulcer disease, pneumonia, pulmonary embolus, stable angina, unstable angina. Differential Diagnosis altered mental status, sepsis, flu. HEART Score: History: Slightly Suspicious (0), ECG: Non specific repolarization disturbance / LBTB / PM (1), Age: > 45 and < 65 years (1), Risk Factors: No Risk Factors Known (0), Troponin: < or = 1 x Normal Limit (0), Total Score = 2. The patient was given aspirin in the Emergency Department. BECKI Risk Score: TOTAL SCORE = 0. Data reviewed: vital signs, nurses notes, lab test result(s), EKG, radiologic studies, plain films. Consideration of Admission/Observation Escalation of care including admission/observation considered. I considered the following discharge prescriptions or medication management in the emergency department Medications were administered in the Emergency Department. See MAR. Independent interpretation of the following test(s) in the Emergency Department EKG: See my EKG interpretation above. Test considered but Not performed: CT: no ct pe. Historians other than the Patient: EMS: ems well informed. 01/01 20:49 Order name: Basic Metabolic Panel; Complete Time: 21:51 01/01 20:49 Order name: CBC with Diff; Complete Time: 22:48 01/01 20:49 Order name: LFT's; Complete Time: 21:51 01/01 20:49 Order name: Magnesium; Complete Time: 21:51 01/01 20:49 Order name: NT PRO-BNP; Complete Time: 21:51 01/01 20:49 Order name: PT-INR; Complete Time: 21:51 neetu 01/01 20:49 Order name: Troponin HS; Complete Time: 21:51 01/01 20:49 Order name: Flu 01/01 20:49 Order name: SARS RAPID; Complete Time: 21:51 neetu 01/01 20:49 Order name: Lipase; Complete Time: 21:51 01/01 21:15 Order name: D-Dimer; Complete Time: 21:51 EDMS 01/01 23:01 Order name: Troponin High Sensitivity: now 11 pm; Complete Time: 00:22 01/01 20:49 Order name: XRAY Chest (1 view); Complete Time: 21:51 neetu 01/01 21:52 Order name: US Extremity Venous W Compression Jay 01/01 21:52 Order name: CT Chest For PE Angio; Complete Time: 22:48 neetu 01/01 20:49 Order name: EKG; Complete Time: 20:50 01/01 20:49 Order name: Cardiac monitoring; Complete Time: 20:52 [facility] 01/01 20:49 Order name: EKG - Nurse/Tech; Complete Time: 20: [facility] 01/01 20:49 Order name: IV Saline Lock; Complete Time: 20: [facility] 01/01 20:49 Order name: Labs collected and sent; Complete Time: 20:52 [facility] 01/01 20:49 Order name: O2 Per Protocol; Complete Time: 20:54 [facility] 01/01 20:49 Order name: O2 Sat Monitoring; Complete Time: 20: [facility] 01/01 23:01 Order name: EKG - Nurse/Tech; Complete Time: 23: [facility] 01/02 00:33 Order name: Orthostatic Blood Pressure; Complete Time: 00:41 [facility] EC:57 Rate is 113 beats/min. Rhythm is regular. QRS [place] is Normal. WA interval is normal. neetu QRS interval is normal. QT interval is normal. No Q waves. T waves are Normal. No ST changes noted. Clinical impression: Sinus tachycardia and No evidence of ischemia. Interpreted by me. Reviewed by me. 23:48 Rate is 87 beats/min. Rhythm is regular. QRS [place] is Normal. WA interval is normal. QRS neetu interval is normal. QT interval is normal. No Q waves. T waves are Normal. No ST changes noted. Clinical impression: NSR w/ Non-specific ST/T Changes and No evidence of ischemia. Interpreted by me. Reviewed by me. Administered Medications: 20:54 Not Given (Duplicate Order): GI Cocktail without - (maaloxsuspension 30 ml, neetu lidocaine mucous membrane liquid 2 % 15 ml) PO once 20:54 Not Given (Duplicate Order): [id number] mg IVP once [facility] 21:09 Drug: NS 0.9% IV 1000 ml IV at 1 bolus Per protocol; 1000 mL bolus Route: IV; Rate: 1 ha1 bolus; Site: right antecubital; 23:30 Follow up: Response: No adverse reaction; IV Status: Completed infusion; IV Intake: ha1 1000ml 21:11 Drug: Aspirin PO Chewable Tablet 81 mg PO once Route: PO; ha1 22:10 Follow up: Response: No adverse reaction; Marked relief of symptoms ha1 21:11 Drug: Acetaminophen PO 1000 mg PO once Route: PO; ha1 22:10 Follow up: Response: No adverse reaction; Marked relief of symptoms; Temperature is ha1 decreased 21:11 Drug: Pantoprazole IVP 40 mg IVP once Route: IVP; Site: right antecubital; ha1 21:40 Follow up: Response: No adverse reaction; Marked relief of symptoms ha1 21:11 Drug: GI Cocktail without - (Maalox PO 30 ml, Lidocaine Mucous Membrane 2 % 15 ha1 ml) PO once Route: PO; 21:40 Follow up: Response: No adverse reaction; Marked relief of symptoms ha1 22:04 Drug: Potassium PO Effervescent Tablet 25 mEq PO once; dissolve in 4 ounces of water or ha1 juice Route: PO; 23:52 Follow up: Response: No adverse reaction ha1 22:05 Drug: Magnesium Sulfate IVPB 1 grams IVPB once over 1 hrs Route: IVPB; Infused Over: 1 ha1 hrs; Site: right antecubital; 23:52 Follow up: Response: No adverse reaction; IV Status: Completed infusion; IV Intake: ha1 100ml 23:52 Drug: Ondansetron IVP 4 mg IVP once; over 2 minutes Route: IVP; Site: right antecubital;ha1 01/02 00:41 Follow up: Response: No adverse reaction; Marked relief of symptoms ha1 Disposition Summary: 01/03/24 00:22 Discharge Ordered Notes: Location: Home(01/03/24 00:22) neetu Problem: new(01/03/24 00:22) neetu Symptoms: have improved(01/03/24 00:22) neetu Condition: Stable(01/03/24 00:22) neetu Diagnosis - Fever, unspecified(01/03/24 00:22) neetu - Acute upper respiratory infection, unspecified(01/03/24 00:22) neetu - Type 2 diabetes mellitus with hyperglycemia(01/03/24 00:22) neetu - Hypomagnesemia(01/03/24 00:22) neetu - Hypokalemia(01/03/24 00:22) neetu - Chest pain, unspecified neetu Followup: neetu - With: Private Physician - When: 2 - 3 days - Reason: Recheck today's complaints, Continuance of care, Re-evaluation by your physician Discharge Instructions: - Discharge Summary Sheet neetu - Nonspecific Chest Pain, Adult neetu - Potassium Content of Foods neetu - Fever, Adult neetu - Hyperglycemia neetu - Hypomagnesemia neetu - Upper Respiratory Infection, Adult neetu - Viral Respiratory Infection neetu - Chest Wall Pain, [id number] neetu - Nonspecific Chest Pain, Adult, Walr-hy-[id number] neetu - Diabetes Mellitus and Nutrition, Adult neetu - Aspirin and Your Heart neetu - Cough, Adult neetu Forms: - Medication Reconciliation Form neetu - Antibiotic Education neetu - Prescription Opioid Use neetu - Patient Portal Instructions neetu - Leadership Thank You Letter neetu - Work release form ha1 Prescriptions: - ondansetron 4 mg Oral Tablet,disintegrating - take 1 tablet ORAL route every 8 hours for 5 days prn nausea and vomiting; 20 neetu tablet; Refills: 0, Product Selection Permitted - Zithromax Z-Juan 250 mg Oral Tablet - take 1 tablet ORAL route as directed for 5 days Day 1 - take two (2) tablets neetu one time. Day 2, 3, 4 , 5 take one (1) tablet once daily.; 6 tablet; Refills: 0, Product Selection Permitted Signatures: Dispatcher [employer] EDMS Ulises Gavin MD MD cha Ayala, Heidy RN RN ha1 Corrections: (The following items were deleted from the chart) 01/01 20:50 20:50 BASIC METABOLIC PANEL+C.LAB.BRZ ordered. EDMS EDMS 20:50 20:50 CBC+H.LAB.BRZ ordered. EDMS EDMS 20:50 20:50 HEPATIC FUNCTION+C.LAB.BRZ ordered. EDMS EDMS 20:50 20:50 MAGNESIUM+C.LAB.BRZ ordered. EDMS EDMS 20:50 20:50 PROBNP+C.LAB.BRZ ordered. EDMS EDMS 20:50 20:50 PROTIME (+INR)+COAG.LAB.BRZ ordered. EDMS EDMS 20:50 20:50 Troponin High Sensitivity+C.LAB.BRZ ordered. EDMS EDMS 20:50 20:50 Influenza Screen (A \T\ B)+BA.LAB.BRZ ordered. EDMS EDMS 20:50 20:50 SARS-COV-2 Antigen Rapid+I.LAB.BRZ ordered. EDMS EDMS 20:50 20:50 LIPASE+C.LAB.BRZ ordered. EDMS EDMS 21:14 20:57 D-DIMER+COAG.LAB.BRZ ordered. EDMS EDMS : 22:57 Home critical access hospital : 22:57 new critical access hospital : 22:57 have improved critical access hospital : 22:57 Stable critical access hospital : 22:57 Fever, unspecified critical access hospital : 22:57 Acute upper respiratory infection, unspecified critical access hospital : 22:57 Type 2 diabetes mellitus with hyperglycemia critical access hospital : 22:57 Hypomagnesemia critical access hospital : 22:57 Hypokalemia critical access hospital
[2024-01-02] MEDS ORDERED: ONDANSETRON 4 MG/2 ML VIAL ONE (23:41)
[2024-01-03 01:17] VITALS: BP 104/64; TEMP 99; O2SAT 100
--- NOTE | 2024-01-04 10:49 | RAD REPORT ---
EXAM DESCRIPTION: US - Extrem Venous W Compress Jay - 01/02/2024 11:02 pm CLINICAL HISTORY: PAIN TECHNIQUE: Real-time Duplex ultrasound of the bilateral lower extremity veins with 2-D alegria scale, c olor Doppler flow, and spectral waveform analysis. COMPARISON: None available for comparison. FINDINGS: Bilateral deep veins: The common femoral, femoral, popliteal and visualized calf veins are patent without thrombus. Normal compressibility, augmentation response, and Doppler waveforms. Bilateral superficial veins: Visualized saphenofemoral junction is patent without thrombus. IMPRESSION: No evidence of venous thrombosis in the lower extremities bilaterally. Electronically signed by: Bebeto Andres MD 01/02/2024 11:17 PM CDT Due to temporary technical issues with the PACS/Fluency reporting system, reports are being signed by the in house radiologist without review as a courtesy to ensure prompt reporting. The interpreting r adiologist is fully responsible for the content of the report.
--- NOTE | 2024-01-04 12:59 | EKG ---
Test Date: 2024-01-02 Test Time: 23:40:00 Housing Quality Standard Inspector: JOSE MEASUREMENT RESULTS: Intervals: Rate: 87 UT: 120 QRSD: 80 QT: 380 QTc: 457 [place]: P: 62 UT: 120 QRS: 38 T: 67 INTERPRETIVE STATEMENTS: Normal sinus rhythm Nonspecific ST abnormality Abnormal ECG Compared to ECG 01/02/2024 20:48:56 ST (T wave) deviation now present Sinus tachycardia no longer present Electronically Signed On 01-04-24 12:55:28 CDT by Prosper Estrella
--- NOTE | 2024-01-04 13:00 | EKG ---
Test Date: 2024-01-02 Test Time: 20:48:56 Sales Development Director: JOY MEASUREMENT RESULTS: Intervals: Rate: 113 [place]: 114 QRSD: 80 QT: 338 QTc: 463 [place]: P: 69 [place]: 114 QRS: 52 T: 46 INTERPRETIVE STATEMENTS: Sinus tachycardia Low voltage QRS Borderline ECG No previous ECG available for comparison Electronically Signed On 01-04-24 12:55:35 CDT by Prosper Estrella
== END 2024-01-03 00:46 | disposition home or self-care (01) ==
LOC: ER 20:35
DX: J06.9 Acute upper respiratory infection, unspecified (principal); E11.65 Type 2 diabetes mellitus with hyperglycemia; E83.42 Hypomagnesemia; E87.6 Hypokalemia; R07.9 Chest pain, unspecified; Z11.52 Encounter for screening for COVID-19
CPT/HCPCS: 36415; 71045; 71275; 80048; 80076; 83690; 83735; 83880; 84484; 85025; 85379; 85610; 87804; 87811; 93005; 93970; 96361; 96365; 96366; 96375; 99284; C9113; J2405; J3475; J7030; Q9967